=== PATIENT | female | born 1980 | race African-American/Black ===

== ENCOUNTER 2020-01-22 14:20 | Outpatient (CLI) | payer OTHER, SELFPAY ==
--- NOTE | ~2020-01-22 | MM_ITS ---
EXAMINATION: MM screening [facility] BI w larry HISTORY: Screening TECHNIQUE: Craniocaudal and mediolateral oblique 3-D tomosynthesis images were obtained and synthetic 2-D images were generated. CAD analysis was submitted and interpreted. COMPARISON: No prior mammogram is available for comparison at this institution. BREAST PARENCHYMAL COMPOSITION: There are scattered areas of fibroglandular density. FINDINGS: There is a mass in the upper outer quadrant of the left breast. There is no evidence of aaliyah picious mass, calcification, or architectural distortion to suggest malignancy in the right breast br east. IMPRESSION: 1. Left breast mass, upper outer quadrant. 2. Additional mammographic views and possible breast ultrasound are recommended. BI-RADS Category 0: Incomplete: Needs additional imaging evaluation. Reviewed, dictated and finalized at location A. IMPRESSION: 1. Left breast mass, upper outer quadrant. 2. Additional mammographic views and possible breast ultrasound are recommended . BI-RADS Category 0: Incomplete: Needs additional imaging evaluation.
== END 2020-01-22 14:21 | disposition home or self-care (01) ==
PROVIDERS: PCP Family Medicine; Visit Provider Obstetrics & Gynecology
DX: Z12.31 Encounter for screening mammogram for malignant neoplasm of breast (principal)
CPT/HCPCS: 77063; 77067

== ENCOUNTER 2020-02-15 12:29 | Outpatient (CLI) | payer OTHER, SELFPAY ==
--- NOTE | ~2020-02-15 | MMUS_ITS ---
EXAMINATION: MM diagnostic mammo unilat LT, US breast LT limited HISTORY: Follow-up left breast density TECHNIQUE: Additional 3-D tomosynthesis images of the left breast were performed and synthetic 2-D im ages were generated. CAD analysis was submitted and interpreted. High resolution Limited left breast ultrasound was performed. COMPARISON: 01/22/2020 BREAST PARENCHYMAL COMPOSITION: There are scattered areas of fibroglandular density. FINDINGS: MAMMOGRAPHIC FINDINGS: There is a mass in the upper outer quadrant of the left breast with lobulated margins, middle third. No suspicious calcifications or architectural distortion. ULTRASOUND: Left breast ultrasound, limited: At 1:00, 10 cm from the nipple, there is an irregular shaped hypoechoic mass with antiparallel confi guration and mixed posterior attenuation. This mass measures 1.6 x 1.1 x 1.1 cm. No internal vascular ity. IMPRESSION: 1. Irregular shaped hypoechoic mass of the left breast at 1:00, 10 cm from the nipple measuring 1.6 c m maximum dimension. This corresponds to the mammographic finding. 2. Ultrasound-guided left breast biopsy recommended. BI-RADS category 4, suspicious findings. Reviewed, dictated and finalized at location A. RETARDER OPERATOR IMPRESSION: 1. Irregular shaped hypoechoic mass of the left breast at 1:00, 10 cm from the nipple measuring 1.6 cm maximum dimension. This corresponds to the mammographic finding. 2. Ultrasound-guided left breast biopsy recommended. BI-RADS category 4, suspicious findings.
== END 2020-02-15 12:30 | disposition home or self-care (01) ==
LOC: ANHIMG 12:30
PROVIDERS: PCP Family Medicine; Visit Provider Obstetrics & Gynecology
DX: R92.8 Other abnormal and inconclusive findings on diagnostic imaging of breast (principal)
CPT/HCPCS: 76642; 77065

== ENCOUNTER 2020-02-28 08:55 | Outpatient (CLI) | payer OTHER, SELFPAY ==
--- NOTE | ~2020-02-28 | MMUS_ITS ---
EXAMINATION: US breast biopsy LT w image, MM post biopsy diagnostic LT DATE: 02/28/2020 10:16 (accession [id number]), 02/28/2020 10:24 (accession [id number]) INDICATION: Indeterminate left breast mass. Ultrasound-guided core biopsy is requested to evaluate f or malignancy. TECHNIQUE AND FINDINGS: The risks and potential benefits of the procedure were discussed with the patient including bleeding and infection. A time out was performed. The skin of the left breast was prepared and draped in usual sterile fashion. 1% lidocaine was used for superficial anesthesia. 1% lidocaine with epinephrine was used for deep anesthesia. A vacuum-assisted biopsy gun needle was advanced through to the outer edge of the region of interest from a lateral approach utilizing sonographic guidance. A total of four tissue core samples were obta ined through the lesion. A tissue marker clip was then placed at the biopsy site. Hemostasis was achi eved. A sterile bandage was applied. The patient tolerated procedure well and there was no evidence of immediate complication. The patient was given verbal instructions to return to the Emergency Department in the event of severe breast pa in or rapid breast enlargement. A two view left breast mammogram was obtained to document tissue garret er clip placement. IMPRESSION: 1. Successful ultrasound-guided vacuum-assisted biopsy of left breast mass with tissue marker placeme nt. Reviewed, dictated and finalized at location A. STOCK OPERATOR IMPRESSION: 1. Successful ultrasound-guided vacuum-assisted biopsy of left breast mass with tissue marker placement.
== END 2020-02-28 08:56 | disposition home or self-care (01) ==
PROVIDERS: PCP Family Medicine; Visit Provider Obstetrics & Gynecology
DX: N63.20 Unspecified lump in the left breast, unspecified quadrant (principal); R92.8 Other abnormal and inconclusive findings on diagnostic imaging of breast
CPT/HCPCS: 19083; 77065; 88305

== ENCOUNTER 2020-04-05 01:29 | Outpatient (CLI) | payer OTHER, SELFPAY ==
[2020-04-05 19:31] LABS: SARS-CoV-2 RNA PCR Negative
== END 2020-04-05 01:30 | disposition home or self-care (01) ==
LOC: ANHCOVIDDT 01:29
PROVIDERS: PCP Family Medicine; Visit Provider Surgery
DX: Z01.818 Encounter for other preprocedural examination (principal); Z20.828 Contact with and (suspected) exposure to other viral communicable diseases
CPT/HCPCS: 87635; C9803; U0003

== ENCOUNTER 2020-04-07 00:44 | Day surgery (SDC) | payer OTHER, SELFPAY ==
--- NOTE | 2020-04-03 16:14 | WPDANESEPPF ---
Anes - Initial Pre Proc Eval Procedure: Operation Date: 04/07/20 09:30 Proposed Procedures p Left Breast Excisional Biopsy With Ultrasound And/Or Mammogram Guided Needle Localization - Roberta Puente MD Date/Time: 04/03/20 16:14 Surgeon: Roberta Puente MD Pre Op Diagnosis: left breast mass Patient Data Age: 39 Gender: F Height: 1.7 m Weight: Allergies Allergy/AdvReac Type Severity Reaction Status Date / Time doxycycline Allergy Intermediate Vomiting Verified 03/28/20 13:50 amoxicillin Allergy Mild Itching Verified 03/28/20 13:50 Home Medications Medication Instructions Recorded Confirmed Type albuterol sulfate 90 mcg/actuation 1 puff INHALATION Q4H PRN #18 gm 10/16/19 03/28/20 Rx aerosol inhaler fluoxetine 10 mg capsule 10 mg PO DAILY #90 cap 10/16/19 03/28/20 Rx rizatriptan 10 mg disintegrating 10 mg PO ONCE PRN #10 tablet 10/16/19 03/28/20 Rx tablet topiramate 50 mg tablet 50 mg PO BID #180 tablet 10/16/19 03/28/20 Rx rbsmgiduhp-sywtpqr-pnqbhgxb 50 1 cap PO Q6H PRN #60 cap 10/21/19 03/28/20 Rx mg-325 mg-40 mg capsule varenicline 0.5 mg tablet 0.5 mg PO BID #60 tablet 03/17/20 03/28/20 Rx Patient hx anesthesia problems: none Family hx anesthesia problems: none PMFSH Past Medical History Medical History (Updated 04/07/20 @ 08:36 by Lonny Mcneal MD) Asthma BMI 37.0-37.9, adult GERD (gastroesophageal reflux disease) Headache Migraines Mild tobacco abuse Myositis ossificans PMDD (premenstrual dysphoric disorder) Surgical History Surgical History Hx of tonsillectomy Hx of tubal ligation Family History Family History Father Hypertension Family history of elevated blood lipids Mother Hypertension Family history of elevated blood lipids Sibling Hypertension Other Arthritis Social History Social History (Updated 03/17/20 @ 14:09 by Carolina Ivy) Social History: Years smoked: 20 Smoking status: Current every day smoker Tobacco type: cigarettes Second hand tobacco smoke exposure: Yes Additional smoking assessment comments: STATES 1/2PK/DAY/SING AGE 17 - TRYING TO QUIT & IS ON CHANTIX Alcohol intake: current Alcohol use details: STATES MAYBE 3 DRINKS A MONTH Substance use: never Substance use type: does not use Living arrangements: with family Gender identity (if verbalized by the patient): Female Spiritual care concerns: No Anes - Eval Final PreProcedure Day of Procedure 04/03/20 16:14 Patient weight: obese Heart: regular rate and rhythm Lungs: clear to auscultation and normal air movement Airway: Mallampati scale class II Neurological: alert and oriented Last oral intake: >/= 8 hours ASA classification: III Emergent: no Anesthetic plan: proceed Anesthesia type and monitoring: general GIVS and LMA Informed Consent: The patient's anesthetic plan and its attendant risks and benefits were discussed with the patient/family/POA. Questions were solicited and answers provided to the satisfaction of the patient/family/POA.
[2020-04-07] VITALS (10 sets, daily range): BP systolic 123–143; BP diastolic 86–97; PULSE 62–81; RESP 12–18; TEMP 36.1–36.4; O2SAT 96–100; BMI 36.6
--- NOTE | ~2020-04-07 | US_ITS ---
US breast needle loc LT, US surgical specimen LT DATE: 04/07/2020 13:14 MIRROR INSPECTOR INDICATION: Left breast mass. Excisional biopsy recommended on pathology. TECHNIQUE: Survey imaging of the left breast was performed. The left was targeted for needle localiz ation. The procedure and its risk and benefits were discussed with the patient. Risks included but w ere not limited to pain, bleeding and infection. The patient verbalized understanding and provided w ritten consent. A time-out was performed to document the patient's name, date of , and site of procedure. The u pper outer quadrant of the patient's left breast was prepped and draped in usual sterile fashion. 1% lidocaine was used for local anesthesia. Utilizing ultrasound guidance, a hook-wire system was adva nced into the lesion in the upper outer quadrant of the left breast. The patient tolerated procedure without immediate complication. Bandages were applied over the needl e localization wire. An invasive mammogram was subsequently performed for confirmation of wire placem ent. A surgical specimen was subsequently received from the operating room and was imaged with ultrasound. The wire is identified in the tissue specimen. The lesion of interest is not well visualized within the tissue specimen. These findings were communicated to the surgeon. IMPRESSION: 1. Status post ultrasound-guided left breast needle localization. Please refer to pathology report fo r histologic analysis. Reviewed, dictated and finalized at location A. OR INSPECTOR IMPRESSION: 1. Status post ultrasound-guided left breast needle localization. Please refer to pathology report for histologic analysis.
--- NOTE | 2020-04-07 07:27 | WPDHPUPDATE1 ---
History and Physical Update Update Date/Time: 04/07/20 07:27 History and Physical has been reviewed, including an updated exam of the patient. There are NO changes in the patient's condition. Risks, benefits, and alternatives have been discussed and questions answered. Patient agrees to proceed with procedure.
[2020-04-07] MEDS: LACTATED RINGERS 1,000 ML 30 ML IV CONT ×2 (07:30→12:38)
--- NOTE | 2020-04-07 11:11 | SUR.PREOP ---
1110 PT WALKED TO BATHROOM. VOIDED.
[2020-04-07] MEDS: CLINDAMYCIN 900 MG/D5W 50 ML 900 MG/50 ML PIGGYBACK 50 MG IVPB (11:24)
[2020-04-07] MEDS: BUPIVACAINE HCL 0.5% PF 30 ML VIAL INFILTRATE (11:52)
[2020-04-07] MEDS: fentaNYL CITRATE INJ (*CRX) 100 MCG/2 ML VIAL 25 MCG IV PUSH ×8 (12:38→13:11)
--- NOTE | 2020-04-07 12:54 | P.OP_ITS ---
Procedure Note - Detailed Date of procedure: 04/07/20 Pre-op diagnosis: left breast mass Post-op diagnosis: same Procedure performed: Excisional biopsy left breast mass with ultrasound guided preoperative needle localization Description of procedure: The patient is taken the operating room placed in the supine position. After adequate induction of general anesthesia, patient was prepped and draped in the normal sterile fashion. A time-out was then done to verify patient's identity, as well as procedure being performed. Of note, the patient had preoperative ultrasound-guided needle localization. Please see report for details of that procedure. I made an incision just inferior to the wire. The incision was carried down through the dermis to the level the breast tissue. Once achieved, I dissected the breast tissue off the overlying dermis. I then brought the wire into our operative field. Using very careful sharp dissection with the Bovie cautery, I dissected around the wire. I did wide local excision around the wire in all direction and was able to posteriorly excise around the distal portion of the wire. Of note, we did not encounter the wire during dissection. Once dissection was complete, the specimen was doni entated by placing a short stitch superiorly and a long stitch laterally. It was then sent to interventional Radiology for confirmation of excision. This was then again done under ultrasound and confirmed. I then gained hemostasis with the Bovie cautery. No other pathology was noted in the cavity. I then closed the subcutaneous tissue with 3 0 Vicryl suture. The skin was closed with 4 Ol Monocryl subcuticular suture. Dermabond was then placed on the wound. The patient tolerated the procedure well and was extubated in the operating room postoperatively. She will be sent to the recovery room in stable condition. 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
--- NOTE | 2020-04-07 13:18 | SUR.PHASEI ---
1317 DR GEORGE SPEAKING WITH PT.
[2020-04-07] MEDS: diphenhydrAMINE HCl INJ 50 MG/ML VIAL 25 MG IV PUSH (13:24)
[2020-04-07] MEDS: oxyCODONE HCL (*CRX) 5 MG TAB IR PO (14:00)
== END 2020-04-07 15:07 | disposition home or self-care (01) ==
PROVIDERS: PCP Family Medicine; Visit Provider Surgery
PROC: (CPT 19125; principal; 2020-04-07 09:30)
DX: D24.2 Benign neoplasm of left breast (principal); N60.82 Other benign mammary dysplasias of left breast; N60.32 Fibrosclerosis of left breast; N60.42 Mammary duct ectasia of left breast; N60.22 Fibroadenosis of left breast; J45.909 Unspecified asthma, uncomplicated; K21.9 Gastro-esophageal reflux disease without esophagitis; M61.9 Calcification and ossification of muscle, unspecified; F17.210 Nicotine dependence, cigarettes, uncomplicated; E66.9 Obesity, unspecified; Z68.36 Body mass index [BMI] 36.0-36.9, adult
CPT/HCPCS: 19125; 19285; 76999; 88305; 88307; A9270; C1769; C9803; J1100; J1200; J2250; J2405; J2704; J3010; J7120; U0003

== ENCOUNTER 2021-03-19 16:11 | Outpatient (CLI) | payer OTHER, SELFPAY ==
--- NOTE | ~2021-03-19 | MM_ITS ---
EXAMINATION: MM screening [facility] BI w larry HISTORY: Screening TECHNIQUE: Craniocaudal and mediolateral oblique 3-D tomosynthesis images were obtained and synthetic 2-D images were generated. CAD analysis was submitted and interpreted. COMPARISON: Comparison to multiple prior studies sequentially, with oldest reviewed study dated 01/09. BREAST PARENCHYMAL COMPOSITION: There are scattered areas of fibroglandular density. FINDINGS: There is a new area of architectural distortion in the upper outer quadrant of the left elvia ast, consistent with previous benign biopsy site. There is no evidence of suspicious mass, calcificat ion, or architectural distortion to suggest malignancy in either breast. There has been no suspicious interval change. IMPRESSION: 1. No mammographic evidence of malignancy. 2. Recommend routine screening mammography in one year. BI-RADS Category 2: Benign finding(s). Reviewed, dictated and finalized at location A. H HANDLER
== END 2021-03-19 16:12 | disposition home or self-care (01) ==
LOC: ANHIMG 16:17
PROVIDERS: PCP Family Medicine; Visit Provider Obstetrics & Gynecology
DX: Z12.31 Encounter for screening mammogram for malignant neoplasm of breast (principal)
CPT/HCPCS: 77063; 77067

== ENCOUNTER → 2021-06-17 15:44 | Outpatient (CLI) | payer OTHER, SELFPAY ==
--- NOTE | ~2021-06-17 | CT_ITS ---
EXAMINATION: CT ankle LT wo con DATE: 06/17/2021 16:13 INDICATION: Left ankle fracture TECHNIQUE: High resolution computed tomography (CT) of the left ankle was performed without intraveno us contrast. Additional sagittal and coronal reconstructions were performed. Automated exposure contr ol and iterative reconstruction technique were employed. The dose-length product was 215.78 mGy-cm. COMPARISON: None FINDINGS: One cortical width posterior displacement and minimal anterior angulation of an oblique fracture of t he lateral malleolus/distal fibula beginning anteriorly near the level of the tibiotalar joint line a nd extending posteriorly up to 6 cm proximal to the level of the joint line. Comminuted intra-articul ar fracture of the distal tibia with nondisplaced oblique sagittally oriented fracture plane extendin g across the proximal aspect of the medial malleolus to the articular surface along the medial margin of the tibial plafond. There is an additional oblique fracture plane extending proximally and latera lly to the lateral metaphyseal cortex proximally 5 cm proximal to the tibiotalar joint line. Finally there is a fracture plane extending across the posterior malleolus with a few millimeter proximal dis placement and which involves only a minimal portion of the articular cortex at the posterior medial a spect of the tibial plafond and. Ankle mortise remains congruent with normal joint space. No evident intra-articular loose bone fragments. No fracture in the visualized portions of the more distal left foot. Joint spaces are normal throughout the left foot. There is soft tissue swelling about the ankle and distal lower leg most prominently laterally and extending over the dorsolateral aspect of the mi d and forefoot. IMPRESSION: 1. Minimally displaced comminuted intra-articular fracture of the distal left tibia and minimally dis placed oblique fracture of the distal left fibula. Reviewed, dictated and finalized at location A. SUPPORT MAKER IMPRESSION: 1. Minimally displaced comminuted intra-articular fracture of the distal left t ibia and minimally displaced oblique fracture of the distal left fibula.
== END ==
PROVIDERS: PCP Family Medicine; Visit Provider Orthopaedic Surgery
DX: S82.892A Other fracture of left lower leg, initial encounter for closed fracture (principal)
CPT/HCPCS: 73700

== ENCOUNTER 2021-06-18 02:11 | Day surgery (SDC) | payer OTHER, SELFPAY ==
[2021-06-16 12:53] VITALS: BMI 36.8
--- NOTE | 2021-06-16 13:06 | PC.NURSE ---
Report to the Outpatient Waiting Room, entrance under the green pavilion located off [facility], at time 1030 on date 06/18/21. OR Time: 1230. - You and your visitor will be asked a series of questions to screen for COVID 19 for your protection. - A mask is required within the hospital. One visitor will be allowed to accompany the patient into the hospital. Patients visitor will be instructed to remain with patient at all times or leave the building. We will allow the visitor to come back to the postoperative area when patient is ready. Preoperative COVID Testing Requirements: No COVID Test needed if: (proof is required; if not received patient will have Rapid Test prior to entry) - Patient has received COVID Vaccine at least 14 days prior to procedure date or - Patient has positive COVID test result within last 90 days of surgery date. COVID Test needed if above criteria is not met Patients may have clear liquids (water, carbonated beverages, clear teas, apple juice) until 3 hours prior to surgery with a maximum of 20 ounces. - No food from midnight until time of surgery Take the following medications with a SIP of water the morning of surgery: MAY TAKE ALL MEDICATIONS NEEDED Medications to discontinue per physician: N/A Date to take last dose: N/A Please no make-up, nail swedish, hairspray, perfume, deodorant, or body powder the day of surgery. No jewelry (including any body piercings) or valuables the day of surgery, leave them at home. Please take a shower or bath the night before, or the morning of, surgery with an antibacterial soap. Wear comfortable, loose fitting clothing. - Jewelry must be removed prior to entering the operating room. Rings and piercings that are not removed may be cut off. - The hospital will not accept responsibility for valuables. - Please leave all valuables, including medications, at home the day of surgery. If you are going home after surgery, a licensed water taxi driver must drive you home. - NO public transportation without another adult. - We recommend that an adult stay with you for 24 hours following discharge. - We also recommend that you do not drive, make important decision, drink alcoholic beverages, or take any drugs that were not prescribed by your health care provider for at least 24 hours after your discharge time. Follow any additional instructions given to you from your surgeon. Telephone instructions given to SHERI LONG and asked if any additional questions and then verbalized understanding. Patient advised to call surgeon office or pre surgery nurse liaison [phone] if any additional questions.
--- NOTE | 2021-06-17 12:43 | WPDANESEPPF ---
Anes - Initial Pre Proc Eval Procedure: Operation Date: 06/18/21 12:30 Proposed Procedures p Open Reduction Internal Fixation Left Ankle Fracture - Steven Carpio MD Date/Time: 06/17/21 12:43 Surgeon: Steven Carpio MD Pre Op Diagnosis: left ankle fracture Patient Data Age: 40 Gender: F Height: 1.7 m Weight: 106.59 kg Allergies Allergy/AdvReac Type Severity Reaction Status Date / Time doxycycline Allergy Intermediate Vomiting Verified 06/16/21 12:51 amoxicillin Allergy Mild Itching Verified 06/16/21 12:51 Home Medications Medication Instructions Recorded Confirmed Type topiramate 50 mg tablet 50 mg PO BID #180 tablet 06/06/20 06/16/21 Rx fluoxetine 10 mg capsule 10 mg PO DAILY #90 cap 06/17/20 06/16/21 Rx ipratropium 0.5 mg-albuterol 3 mg 3 ml INHALATION Q4H PRN #180 ml 06/23/20 06/16/21 Rx (2.5 mg base)/3 mL nebulization soln rizatriptan 10 mg disintegrating 10 mg PO ONCE PRN #10 tablet 08/14/20 06/16/21 Rx tablet budesonide-formoterol HFA 160 2 puff INHALATION Q12H #10.2 g 01/21/21 06/16/21 Rx mcg-4.5 mcg/actuation aerosol inhaler ubrogepant 50 mg tablet 50 mg PO ONCE PRN #10 tablet 01/29/21 06/16/21 Rx buspirone 5 mg tablet 5 mg PO TID #270 tablet 05/26/21 06/16/21 Rx omeprazole 40 mg capsule,delayed 40 mg PO DAILY #90 cap 05/26/21 06/16/21 Rx release albuterol sulfate 90 mcg/actuation 1 inh INHALATION Q4H PRN #8.5 g 06/03/21 06/16/21 Rx aerosol inhaler hydrocodone 7.5 mg-acetaminophen 1 tablet PO Q4H PRN #30 tablet 06/16/21 06/16/21 Rx 325 mg tablet Patient hx anesthesia problems: none Family hx anesthesia problems: none Results Review: All pre-operative results and documents have been reviewed as part of the pre-operative evaluation. [facility] Past Medical History Medical History Asthma BMI 37.0-37.9, adult GERD (gastroesophageal reflux disease) Headache Migraines Mild tobacco abuse Myositis ossificans PMDD (premenstrual dysphoric disorder) Wears glasses Surgical History Surgical History History of excision of mass 04/07/20 Excisional biopsy left breast mass with ultrasound guided preoperative needle localization Hx of tonsillectomy Hx of tubal ligation Family History Family History Father Hypertension Family history of elevated blood lipids Mother Hypertension Family history of elevated blood lipids Sibling Hypertension Other Arthritis Asthma Social History Social History Social History: Smoking packs per day: 0.5 Smoking cigarettes per day: 10.0 Years smoked: 20 Smoking pack-years: 10.00 Smoking status: Current every day smoker Tobacco type: cigarettes Second hand tobacco smoke exposure: Yes Alcohol intake: current Alcohol use details: 1-2/MONTH Substance use: never Substance use type: does not use Living arrangements: with family 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 Gender identity (if verbalized by the patient): Female Sexual Orientation (if Verbalized by the Patient): Straight or Heterosexual Spiritual care concerns: No Anes - Eval Final PreProcedure Day of Procedure 06/17/21 12:43 Patient weight: obese Heart: regular rate and rhythm Lungs: clear to auscultation and normal air movement Airway: Mallampati scale class II Neurological: alert and oriented Last oral intake: >/= 8 hours ASA classification: III Emergent: no Anesthetic plan: proceed Anesthesia type and monitoring: general LMA Results Review: All pre-operative results and documents have been reviewed as part of the pre-operative evaluation. Informed Consent: The patient's anesthetic plan and its attendant risks and benefits were discussed with the patient/family/POA. Ques
[2021-06-18] VITALS (18 sets, daily range): BP systolic 117–140; BP diastolic 67–88; PULSE 77–105; RESP 14–20; TEMP 36.6–38; O2SAT 96–100
--- NOTE | ~2021-06-18 | XR_ITS ---
EXAMINATION: XR surgery orthopedic EXAM DATE: 06/18/2021 13:15 INDICATION: Left ankle ORIF. TECHNIQUE: Fluoroscopy used during left ankle ORIF performed by Dr. Steven Carpio MD. Radiologi st was not present for the imaging or procedure. Total fluoroscopic time of 1 minute. The DAP for t his procedure was 0.075 mGym2. A total of 4 images sent to PACS from the exam. FINDINGS: Comminuted left tibial plafond fracture and distal fibular metaphyseal fracture have been reduced and internally fixed with orthopedic hardware. Mortise relationship appears intact. Correlat e with procedure note. IMPRESSION: Fluoroscopy used during left fibular, tibial plafond and ORIF. Reviewed, dictated and finalized at location A. [employer]
--- NOTE | 2021-06-18 07:10 | WPDHPUPDATE1 ---
History and Physical Update Update Date/Time: 06/18/21 07:10 History and Physical has been reviewed, including an updated exam of the patient. There are NO changes in the patient's condition. Risks, benefits, and alternatives have been discussed and questions answered. Patient agrees to proceed with procedure.
[2021-06-18] MEDS: LACTATED RINGERS 1,000 ML 30 ML IV CONT ×2 (11:00→13:32)
[2021-06-18] MEDS: ACETAMINOPHEN 500 MG TABLET 1000 MG PO (11:00)
[2021-06-18] MEDS: KETOROLAC 15 MG/ML VIAL (*BKC) IV PUSH (11:00)
[2021-06-18] MEDS: ceFAZolin 2 GM/D5W 50 ML 2 GM/50 ML BAG IVPB (11:40)
--- NOTE | 2021-06-18 11:40 | WPDANESPNB ---
Anes - Peripheral Nerve Block Date/Time: 06/18/21 11:40 I have discussed with the patient/family/POA the placement of a peripheral nerve block for post-operative pain management, including associated risks, benefits, complications, and side effects. Alternative methods of post-operative analgesia were detailed. Questions were solicited and answers provided to the satisfaction of the patient/family/POA. Time-Out: A pre-procedural Time-Out was completed immediately before starting the procedure and confirmed: Patient Identification, Site, Procedure, Patient Position and the Availability of Requisite Equipment. Clinical Indications: Acute post-operative pain management requested by the operative surgeon. Nerve Block Insertion Note Anes-nerve block: posterior fossa sciatic (20cc) left and adductor canal (10cc) left Patient position: supine Skin prep: chlorhexidine Needle: 22 gauge, stimulating, insulated echogenic needle. Needle length: 80 mm Technique: ultrasound (in plane) Injectate: bupivacaine 0.5% with epi 5 mcg/ml (20cc) Observations: tolerated well Complications: none Procedure start time:: 113 Procedure end time:: 1134
[2021-06-18] MEDS: fentaNYL CITRATE INJ (*CRX) 100 MCG/2 ML VIAL 25 MCG IV PUSH ×8 (13:36→13:57)
--- NOTE | 2021-06-18 13:45 | W.PM.PROC2 ---
Procedure Note - Detailed Date of Procedure 06/18/21 Pre-op Diagnosis left ankle fracture-distal tibia weight-bearing comminuted fracture, distal fibula fracture Post-op Diagnosis Same Procedure Performed Open reduction internal fixation of left ankle distal tibia weight-bearing fracture with fixation of distal fibular fracture. Surgeon Steven Carpio MD [employer] litigation legal assistant Anesthesia General and Regional Indications 40-year-old woman fell injuring her left ankle. Fracture of the distal tibia with intra-articular extension as well as the distal fibula with displacement. Patient desires operative treatment. Description of Procedure After informed consent, the operative extremity was marked in the preoperative holding area. Patient received intravenous antibiotics. Patient was then taken to the operating room and underwent general anesthesia by the anesthesia team. Positioned supine on the operating room table with a soft bump under the ipsilateral hip. A time-out was performed confirming the patient, site of the surgery, operative plan. Lower extremity then prepped and draped in the usual sterile surgical fashion using ChloraPrep skin solution. Foot and ankle exsanguinated and a thigh tourniquet inflated to 250 mmHg. Longitudinal incision made over the lateral ankle distal fibula with a 15 blade knife. Hemostasis controlled with electrocautery. Full-thickness soft tissue flaps developed and the fascia was incised in line with the skin incision. Venous tourniquet noted and tourniquet released. Fracture identified and cleared with a dental pick, irrigation and rongeur. Fracture reduced and held with bone-holding clamp. Image intensification confirmed reduction of the fracture and the ankle mortise. Fixation achieved with a 3.5 millimeter fully-threaded cortical screw placed in lag technique across the fracture. Neutralization with a lateral plate with unicortical screws distal to fracture and bicortical screws proximal to the fracture. Good alignment and stability of the fracture noted. Image intensification used to confirm reduction of the fracture and placement of the hardware. Medial side then addressed. Longitudinal incision made with a 15 blade knife over the medial malleolus fracture and distal tibia.. Hemostasis controlled with electrocautery. Fascia incised in line with skin incision. Periosteum cleared from the medial malleolus fracture. Medial side of the joint inspected and noted to have mild amount of trauma to the chondral surface. Thorough irrigation of the ankle joint and suctioned out. Fracture reduced and provisionally pinned. Fixation achieved with 4.0 mm partially threaded cancellous screws placed in cannulated screw fashion through a hook plate placed medially on the distal tibia. Image intensification confirmed reduction of the fracture and placement of the hardware. Further fixation from the plate into the distal tibia with 3.5 mm cortical screws. Stress of the ankle performed with good stability of the ankle mortise in all directions. Intraoperative fluoroscopy confirm reduction of the tibia and fibula fractures and placement of the hardware. Stability of the ankle mortise and syndesmosis confirmed. Wounds thoroughly irrigated with solution. Fascia repaired with 0 Vicryl interrupted suture. Subcutaneous tissue repaired with 000 Monocryl interrupted suture and Skin approximated with carey. Sterile dressings applied followed by bulky dressing and splint. Patient awoken from anesthesia, extubated and taken to the recovery room in stable condition. All sponge, needle and instrument counts correct at the end of the case. Palpable dorsalis pedis pulse noted prior to dressing. Implants Arthrex 1/3 tubular plate, 7 hole laterally with appropriate screws, 7 hole hook plate medially with appropriate screws. Estimated Blood Loss 50 Tourniquet Time 5 Drains No Packing No Pathology None sent Complications None Condi
[2021-06-18] MEDS: HYDROmorphone HCL INJ (*CRX) 1 MG/ML SYR 0.5 MG IV PUSH ×4 (14:00→14:45)
[2021-06-18] MEDS: KCL 20 MEQ/D5/0.45% SOD CHL 1,000 ML 80 ML IV CONT (16:28)
[2021-06-18] MEDS: IBUPROFEN IV 800 MG/200 ML 800 MG/200 ML BAG 400 MG IVPB ×2 (16:29→21:37)
[2021-06-18] MEDS: SENNA/DOCUSATE SODIUM TABLET 2 TAB PO (17:30)
[2021-06-18] MEDS: busPIRone HCL 5 MG TABLET PO (17:31)
[2021-06-18] MEDS: TOPIRAMATE 25 MG TABLET 50 MG PO (17:31)
[2021-06-18] MEDS: HYDROcodone/acetaminophen (*CRX) 7.5-325 MG TABLET 1 TAB PO ×2 (18:56→22:10)
--- NOTE | 2021-06-18 20:16 | ADMGEN ---
This patient, Bhavna Campos, was admitted to Medical Room 346-01. Patient/family oriented to hospital policies and general routines including ID bracelet, bed and alarms, visiting hours, pain management, procedures, bathroom and other care routines, personal items, smoking policy, room service/diet, and visiting hours. Information on how to activate the Rapid Response Team has been discussed. Patient/Family are encouraged to report perceived risks to care and to ask questions if they do not understand what they are told or what they should do.
[2021-06-18] MEDS: FLUTICASONE/SALMETEROL 115-21 MCG INHALER 1 PUFF 2 PUFF INHALATION (21:29)
[2021-06-18] MEDS: RIZATRIPTAN BENZOATE 10 MG TABLET PO (21:37)
[2021-06-18] MEDS: FAMOTIDINE 20 MG TABLET PO (21:45)
[2021-06-18] MEDS: MORPHINE SULFATE (*CRX) 4 MG/ML INJ 3 MG IV PUSH (23:31)
[2021-06-19 00:40] VITALS: BP 134/79; PULSE 84; RESP 18; TEMP 36.9; O2SAT 99
[2021-06-19] MEDS: HYDROcodone/acetaminophen (*CRX) 7.5-325 MG TABLET 1 TAB PO ×4 (01:40→13:02)
[2021-06-19] MEDS: IBUPROFEN IV 800 MG/200 ML 800 MG/200 ML BAG 400 MG IVPB ×2 (03:14→09:54)
[2021-06-19 05:46] LABS: Anion Gap 5 mmol/L (8-16); Blood Urea Nitrogen 8 mg/dL (7-17); Calcium 9.4 mg/dL (8.4-10.2); Carbon Dioxide 21 mmol/L (22-30); Chloride 114 mmol/L (98-107); Estimated CRCL calculation 133 ml/min; Estimated Glomerular Filt Rate > 60; Glucose 123 mg/dL (65-110); Potassium 3.9 mmol/L (3.4-5.0); Sodium 140 mmol/L (137-145)
[2021-06-19 06:11] LABS: Basophils Percent Auto 0.1 % (0.2-1.2); Eosinophils Percent Auto 0.1 % (0-4.4); Hematocrit 34.1 % (37.0-47.0); Hemoglobin 10.7 g/dL (12.0-15.0); Immature Granulocyte Absolute 0.09 K/mm3 (0.00-0.031); Immature Granulocyte Percent A 0.7 % (0-0.5); Lymphocytes Absolute Auto 1.92 K/mm3 (0.9-3.2); Lymphocytes Percent Auto 13.9 % (18.3-44.2); Mean Corpuscular HGB Conc 31.4 g/dl (32-36); Mean Corpuscular Hemoglobin 26.9 pg (26-34); Mean Corpuscular Volume 85.7 fl (80-100); Mean Platelet Volume 10.4 fl (7.4-10.4); Monocytes Absolute Auto 1.2 K/mm3 (0.1-0.6); Monocytes Percent Auto 8.8 % (2.6-8.5); Neutrophils Absolute Auto 10.5 K/mm3 (1.3-6.7); Neutrophils Percent Auto 76.4 % (45.5-73.1); Platelet Count Result 251 k/mm3 (150-375); Red Blood Count 3.98 M/mm3 (4.2-5.4); Red Cell Distribution Width 14.5 % (11.5-14.5); White Blood Count 13.8 K/mm3 (4.5-10.0)
[2021-06-19 08:15] VITALS: O2SAT 100
[2021-06-19 08:54] VITALS: BP 135/65; PULSE 102; RESP 20; TEMP 36.9; O2SAT 100
--- NOTE | 2021-06-19 09:13 | PM.PNORT ---
Progress Note: A&P Assessment and Plan (1) Status post ORIF of fracture of ankle: Code(s): Z98.890 - Other specified postprocedural states; Z87.81 - Personal history of (healed) traumatic fracture Status: Acute Assessment and Plan: POD #1: ORIF Left Ankle Fracture Continue PT/OT. NWB LLE. Pain control. Ice, elevate. DVT prophylaxis. Incentive Spirometry. Bowel Regimen Dispo: Home Follow up scheduled. (2) Ankle fracture: Qualifiers: Encounter type: initial encounter Fracture type: closed Laterality: left Qualified Code(s): S82.892A - Other fracture of left lower leg, initial encounter for closed fracture Code(s): S82.899A - Other fracture of unspecified lower leg, initial encounter for closed fracture Status: Acute (3) Tobacco abuse: Code(s): Z72.0 - Tobacco use Status: Acute (4) Right ankle sprain: Qualifiers: Encounter type: subsequent encounter Involved ligament of ankle: anterior talofibular ligament Qualified Code(s): S93.491D - Sprain of other ligament of right ankle, subsequent encounter Code(s): S93.401A - Sprain of unspecified ligament of right ankle, initial encounter Status: Acute Assessment and Plan: Patient to be fit with fracture boot today prior to discharge. Ortho service will perform. Subjective Subjective Date/Time Seen: 06/19/21 09:13 Post Op day: 1 Principal diagnosis: Left Ankle Fracture Interval history: POD #1: ORIF Left Ankle Right ankle sprain. Continued pain/swelling. Mild difficulty with ambulation. Would like fracture boot for home. Pain well controlled overall of the LLE. Worked well with PT/OT. Hopeful for d/c home. Review of Systems Review of Systems: All systems reviewed & are unremarkable except as noted in HPI and below (HPI ) Exam Const: General: comfortable and no acute distress Resp: Effort & Inspection: normal respiratory effort Cardio: Rate: regular rate Rhythm: regular rhythm GI: Inspection: non-distended GI Palp: Yes Soft to palpation, No Firmness to palpation present (GI) and No Tenderness to palpation present (GI) Neuro: General: No gait normal Cognition (Neuro): normal cognition Extrem: Right lower extremity: ankle (LEN wrap in place. ) Left lower extremity: ankle (Splint c/d/i. ) Other: Splint LLE c/d/i. Moves toes. Sensation intact to light touch. Right ankle with LEN wrap in place. Mild swelling. Moves toes. NV intact. Psych: Mental Status: mental status grossly normal Thought content: Yes Normal thought content present Objective Data Vital Signs Vital Signs: Vital Signs - 24 hr 06/18/21 11:30 06/18/21 13:32 06/18/21 13:45 Temperature 36.6 C 36.7 C Pulse Rate 83 105 H 93 Respiratory Rate 18 16 16 Blood Pressure 132/86 135/78 124/81 Pulse Oximetry 100 97 100 06/18/21 14:00 06/18/21 14:15 06/18/21 14:30 Temperature Pulse Rate 91 93 91 Respiratory Rate 16 14 14 Blood Pressure 122/82 121/76 117/78 Pulse Oximetry 100 97 99 06/18/21 14:45 06/18/21 14:54 06/18/21 15:10 Temperature 38.0 C H Pulse Rate 86 87 88 Respiratory Rate 14 16 20 Blood Pressure 122/88 133/88 127/74 Pulse Oximetry 99 96 100 06/18/21 15:25 06/18/21 16:55 06/18/21 17:26 Temperature 36.9 C 36.9 C 37.3 C Pulse Rate 82 82 86 Respiratory Rate 20 18 20 Blood Pressure 123/73 131/67 140/80 Pulse Oximetry 100 100 100 06/18/21 17:40 06/18/21 20:03 06/18/21 20:15 Temperature Pulse Rate Respiratory Rate Blood Pressure Pulse Oximetry 99 99 99 06/18/21 21:27 06/18/21 23:23 06/18/21 23:24 Temperature 36.7 C 37.1 C Pulse Rate 78 77 Respiratory Rate 18 18 Blood Pressure 128/77 128/77 Pulse Oximetry 98 99 99 06/19/21 00:40 06/19/21 08:54 Temperature 36.9 C 36.9 C Pulse Rate 84 102 H Respiratory Rate 18 20 Blood Pressure 134/79 135/65 Pulse Oximetry 99 100 Intake/Output Intake/Output: Intake & Output 06/16/21 06/17/21 03
[2021-06-19] MEDS: FLUTICASONE/SALMETEROL 115-21 MCG INHALER 1 PUFF 2 PUFF INHALATION (09:26)
[2021-06-19 09:27] VITALS: O2SAT 96
--- NOTE | 2021-06-19 09:33 | P.PNAN_ITS ---
Anes - Prog Note Post-Op Date/Time: 06/19/21 09:33 Cardiovascular status: normal Respiratory status: normal Airway patency: baseline Mental status: baseline Post-Op hydration status: normal Vital Signs: Last Vital Signs Temp 36.9 C 06/19/21 08:54 Pulse 102 H 06/19/21 08:54 Resp 20 06/19/21 08:54 BP 135/65 06/19/21 08:54 Pulse Ox 96 06/19/21 09:27 Pain Score (VAS): 0 I/O: Intake & Output 06/18/21 06/19/21 06/19/21 23:59 07:59 15:59 Intake Total 450 1300 240 Output Total 1400 Balance 450 -100 240 Laboratory Tests 06/19/21 05:27 06/19/21 05:27 06/19/21 06/19/21 05:27 05:27 WBC 13.8 H RBC 3.98 L Hgb 10.7 L Hct 34.1 L MCV 85.7 MCH 26.9 MCHC 31.4 L RDW 14.5 Plt Count 251 MPV 10.4 Immature Gran % (Auto) 0.7 H Neut % (Auto) 76.4 H Lymph % (Auto) 13.9 L Knott % (Auto) 8.8 H Eos % (Auto) 0.1 Baso % (Auto) 0.1 L Lymph # (Auto) 1.92 Knott # (Auto) 1.2 H Eos # (Auto) 0.0 Baso # (Auto) 0.0 Abs Immat Gran (auto) 0.09 H Absolute Neuts (auto) 10.5 H Absolute Nucleated RBC 0.0 Nucleated RBC % 0.0 Sodium 140 Potassium 3.9 Chloride 114 H Carbon Dioxide 21 L Anion Gap 5 L BUN 8 Creatinine 0.60 L Estim Creat Clear Calc 133 Estimated GFR > 60 Glucose 123 H Calcium 9.4 Post-procedural complaints: none Patient Feedback: Patient satisfied with anesthetic care.
[2021-06-19] MEDS: SENNA/DOCUSATE SODIUM TABLET 2 TAB PO (09:53)
[2021-06-19] MEDS: TOPIRAMATE 25 MG TABLET 50 MG PO (09:53)
[2021-06-19] MEDS: busPIRone HCL 5 MG TABLET PO (09:53)
[2021-06-19] MEDS: polyethylene glycoL 3350 17 GM POWD.PACK PO (09:54)
[2021-06-19] MEDS: FLUoxetine HCL 10 MG CAPSULE PO (09:54)
[2021-06-19] MEDS: PANTOPRAZOLE 40 MG TABLET PO (09:54)
[2021-06-19] MEDS: FAMOTIDINE 20 MG TABLET PO (09:54)
[2021-06-19] MEDS: ASPIRIN 325 MG ENTERIC TABLET 650 MG PO (09:54)
== END 2021-06-19 13:15 | disposition home or self-care (01) ==
LOC: ANHSURGERY 11:44 → ANH3MED 17:21
PROVIDERS: PCP Family Medicine; Visit Provider Orthopaedic Surgery
PROC: (CPT 27828; principal; 2021-06-18 12:30)
DX: S82.832A Other fracture of upper and lower end of left fibula, initial encounter for closed fracture (principal); S82.872A Displaced pilon fracture of left tibia, initial encounter for closed fracture; X50.0XXA Overexertion from strenuous movement or load, initial encounter; G89.18 Other acute postprocedural pain; J45.909 Unspecified asthma, uncomplicated; K21.9 Gastro-esophageal reflux disease without esophagitis; F17.210 Nicotine dependence, cigarettes, uncomplicated; E66.9 Obesity, unspecified; Z68.37 Body mass index [BMI] 37.0-37.9, adult; Z79.51 Long term (current) use of inhaled steroids
CPT/HCPCS: 27828; 64445; 64447; 36415; 80048; 85025; 94640; 97161; 97165; A9270; C1713; C1769; J0690; J1100; J1170; J1741; J1885; J2250; J2270; J2405; J2704; J3010; J3480; J7120

== ENCOUNTER 2021-08-10 15:23 | Outpatient (CLI) | payer OTHER, SELFPAY ==
--- NOTE | ~2021-08-10 | XR_ITS ---
EXAMINATION: XR abdomen/kub 1V DATE: 08/10/2021 16:01 INDICATION: Nausea. TECHNIQUE: A supine view of the abdomen on 2 radiographs was obtained. COMPARISON: CT abdomen and pelvis 05/02/2012 FINDINGS: There are no dilated loops of bowel. There are numerous calcifications in the pelvis. There is an 8 mm stone in left kidney. IMPRESSION: 1. Normal bowel gas pattern. 2. 8 mm left kidney stone. 3. Calcifications in the pelvis, likely phleboliths. Distal ureteral stone cannot be excluded. Reviewed, dictated and finalized at location B. IMPRESSION: 1. Normal bowel gas pattern. 2. 8 mm left kidney stone. 3. Calcifications in the pelvis, likely phleboliths. Distal ureteral stone balbir ot be excluded.
[2021-08-10 16:25] LABS: Basophils Percent Auto 0.3 % (0.2-1.2); Eosinophils Absolute Auto 0.3 K/mm3 (0-0.3); Eosinophils Percent Auto 2.6 % (0-4.4); Hematocrit 42.6 % (37.0-47.0); Hemoglobin 13.8 g/dL (12.0-15.0); Immature Granulocyte Absolute 0.03 K/mm3 (0.00-0.031); Immature Granulocyte Percent A 0.3 % (0-0.5); Lymphocytes Absolute Auto 2.69 K/mm3 (0.9-3.2); Mean Corpuscular HGB Conc 32.4 g/dl (32-36); Mean Corpuscular Hemoglobin 26.8 pg (26-34); Mean Corpuscular Volume 82.7 fl (80-100); Mean Platelet Volume 10.9 fl (7.4-10.4); Monocytes Percent Auto 10.2 % (2.6-8.5); Neutrophils Absolute Auto 5.6 K/mm3 (1.3-6.7); Neutrophils Percent Auto 58.6 % (45.5-73.1); Platelet Count Result 334 k/mm3 (150-375); Red Blood Count 5.15 M/mm3 (4.2-5.4); Red Cell Distribution Width 13.9 % (11.5-14.5); White Blood Count 9.6 K/mm3 (4.5-10.0)
[2021-08-10 16:34] LABS: Alanine Aminotransferase 24 U/L (4-35); Albumin Level 4.1 g/dL (3.5-5.1); Alkaline Phosphatase 71 U/L (38-126); Anion Gap 8 mmol/L (8-16); Aspartate Amino Transferase 26 U/L (14-36); Bilirubin,Total 0.3 mg/dL (0.2-1.3); Blood Urea Nitrogen 12 mg/dL (7-17); Calcium 10.5 mg/dL (8.4-10.2); Carbon Dioxide 25 mmol/L (22-30); Chloride 107 mmol/L (98-107); Estimated Glomerular Filt Rate > 60; Glucose 97 mg/dL (65-110); Potassium 3.6 mmol/L (3.4-5.0); Sodium 140 mmol/L (137-145)
== END 2021-08-10 15:24 | disposition home or self-care (01) ==
LOC: ANHIMG 15:25
PROVIDERS: PCP Family Medicine; Visit Provider Nurse Practitioner Gerontology
DX: R11.0 Nausea (principal); R10.9 Unspecified abdominal pain; N20.0 Calculus of kidney
CPT/HCPCS: 36415; 74018; 80053; 85025

== ENCOUNTER → 2021-08-12 11:45 | Outpatient (CLI) | payer OTHER, SELFPAY ==
--- NOTE | ~2021-08-12 | CT_ITS ---
EXAMINATION: CT abdomen pelvis wo con DATE: 08/12/2021 12:02 INDICATION: Left flank pain. Pelvic pain. TECHNIQUE: Computed tomography (CT) of the abdomen and pelvis was performed without intravenous contr ast. Automated exposure control and iterative reconstruction technique were employed. The dose-length product was 734.55 mGy-cm. COMPARISON: CT abdomen and pelvis 05/02/2012 FINDINGS: The visualized portions of the lung bases demonstrate mild atelectasis in the left. No pleu ral effusion. The heart size is normal. No pericardial effusion. The liver, gallbladder, spleen, panc reas, adrenal glands, and kidneys are normal. There is a 7 mm stone in left renal pelvis. There are n o dilated loops of bowel. The appendix is normal. There is a small sliding hiatal hernia. There are n o pathologically enlarged lymph nodes. There is no free intraperitoneal fluid. There is mild lumbar s pondylosis. IMPRESSION: 1. 7 mm in the left renal pelvis. No hydronephrosis. 2. Small sliding hiatal hernia. Reviewed, dictated and finalized at location B.
== END ==
PROVIDERS: PCP Family Medicine; Visit Provider Nurse Practitioner Gerontology
DX: N20.0 Calculus of kidney (principal); R10.9 Unspecified abdominal pain; K44.9 Diaphragmatic hernia without obstruction or gangrene
CPT/HCPCS: 74176

== ENCOUNTER 2021-08-19 12:42 | Outpatient (CLI) | payer OTHER, SELFPAY ==
[2021-08-19 13:27] LABS: INR 1.2; Prothrombin Time 14.7 Seconds (11.1-14.7)
[2021-08-19 13:28] LABS: Partial Thromboplastin Time 28.7 SECONDS (22.3-36.8)
== END 2021-08-19 12:43 | disposition home or self-care (01) ==
PROVIDERS: PCP Family Medicine; Visit Provider Urology
DX: N20.0 Calculus of kidney (principal); Z01.818 Encounter for other preprocedural examination
CPT/HCPCS: 36415; 85610; 85730; 87086; 87088

== ENCOUNTER 2021-08-21 01:39 | Day surgery (SDC) | payer OTHER, SELFPAY ==
--- NOTE | 2021-08-17 13:17 | PC.NURSE ---
Report to the Outpatient Waiting Room, entrance under the green pavilion located off [facility], at time _0600 on date 08/21/21 . OR Time: _729 . - You and your visitor will be asked a series of questions to screen for COVID 19 for your protection. - Only one visitor is allowed at this time. - The patient visitor is requested to leave or wait in car when not with patient. - A mask is required within the hospital. Patients may have clear liquids (water, carbonated beverages, clear teas, apple juice) until 3 hours prior to surgery with a maximum of 20 ounces. - No food from midnight until time of surgery - Infants may have breast milk until 4 hours before surgery, infant formula 6 hours prior to surgery. - Children will be allowed to drink immediately following surgery. If applicable, please bring a bottle or sippy cup to assist with drinking. Juice, water, soda, and popsicles are readily available. For infants on formula, please bring formula the day of surgery. Pacifiers are allowed. Take the following medications with a SIP of water the morning of surgery: INHALER IF NEEDED, BUSPIRONE,FLUOXETINE,,MAY TAKE PAIN PILL IF NEEDED Medications to discontinue per physician ____ASPIRIN, NSAIDS 7 DAYS PRE OP- NORMALLY DOESN'T TAKE Date to take last dose Please no make-up, nail macedonian, hairspray, perfume, deodorant, or body powder the day of surgery. No jewelry (including any body piercings) or valuables the day of surgery, leave them at home. Please take a shower or bath the night before, or the morning of, surgery with an antibacterial soap. Wear comfortable, loose fitting clothing. Children are encouraged to wear pajamas. - Jewelry must be removed prior to entering the operating room. Rings and piercings that are not removed may be cut off. - The hospital will not accept responsibility for valuables. - Please leave all valuables, including medications, at home the day of surgery. If you are going home after surgery, a licensed fire truck driver must drive you home. - NO public transportation without another adult. - We recommend that an adult stay with you for 24 hours following discharge. - We also recommend that you do not drive, make important decision, drink alcoholic beverages, or take any drugs that were not prescribed by your health care provider for at least 24 hours after your discharge time. For Pediatric surgeries, we recommend two adults accompany the child home (only one inside the building at this time). Follow any additional instructions given to you from your surgeon. If you or anyone in your household have experienced Covid symptoms in the past week, please notify your surgeon or the nurse liaison at the phone number below for possible testing. Telephone instructions given to __PATIENT and asked if any additional questions and then verbalized understanding. Patient advised to call surgeon office or pre surgery nurse liaison [phone] if any additional questions.
[2021-08-17 13:30] VITALS: BMI 36.0
[2021-08-21] VITALS (8 sets, daily range): BP systolic 117–162; BP diastolic 76–99; PULSE 78–101; RESP 12–22; TEMP 36.1–36.8; O2SAT 96–100
--- NOTE | ~2021-08-21 | XR_ITS ---
EXAMINATION: XR abdomen/kub 1V INDICATION: Kidney stone TECHNIQUE: Supine views of the abdomen were obtained on 2 radiographs. COMPARISON: 08/10/2021 FINDINGS: An 8 mm stone projects in the left renal pelvis. No additional urolithiasis is identified. There are multiple phleboliths of the pelvis. Bowel gas pattern is normal. The visualized lung bases are clear. IMPRESSION: 1. 8 mm stone in the left renal pelvis. Reviewed, dictated and finalized at location A.
--- NOTE | 2021-08-21 07:01 | WPDANESEPPF ---
Anes - Initial Pre Proc Eval Procedure: Operation Date: 08/21/21 07:30 Proposed Procedures p Left Extracorporeal Shock Wave Lithotripsy - Nas Talavera MD s Cystoscopy, Left Ureteroscopy, Possible Left Stent Placement, Left Renal Stone Extraction, Left Retrograde Pyelogram, Possible Laser Lithotripsy - Nas Talavera MD Date/Time: 08/21/21 07:01 Surgeon: Nas Talavera MD Pre Op Diagnosis: Lt Renal Stone Patient Data Age: 40 Gender: F Height: 1.7 m Weight: 104.35 kg Allergies Allergy/AdvReac Type Severity Reaction Status Date / Time doxycycline AdvReac Intermediate Vomiting Verified 08/21/21 06:24 amoxicillin AdvReac Mild Itching Verified 08/21/21 06:24 Home Medications Medication Instructions Recorded Confirmed Type topiramate 50 mg tablet 50 mg PO BID #180 tablet 06/06/20 08/21/21 Rx fluoxetine 10 mg capsule 10 mg PO DAILY #90 cap 06/17/20 08/21/21 Rx ipratropium 0.5 mg-albuterol 3 mg 3 ml INHALATION Q4H PRN #180 ml 06/23/20 08/17/21 Rx (2.5 mg base)/3 mL nebulization soln ubrogepant 50 mg tablet 50 mg PO ONCE PRN #10 tablet 01/29/21 08/21/21 Rx buspirone 5 mg tablet 5 mg PO TID #270 tablet 05/26/21 08/21/21 Rx omeprazole 40 mg capsule,delayed 40 mg PO DAILY #90 cap 05/26/21 08/21/21 Rx release albuterol sulfate 90 mcg/actuation See Rx Instructions .ROUTE 07/06/21 08/21/21 Rx aerosol inhaler .COMPLEX #8.5 each ondansetron 4 mg disintegrating 4 mg PO Q8H PRN #20 tablet 08/10/21 08/21/21 Rx tablet budesonide-formoterol [Symbicort] 2 puff INHALATION PRN PRN 08/17/21 08/21/21 History hydrocodone-acetaminophen 1 tablet PO PRN PRN 08/17/21 08/21/21 History Patient hx anesthesia problems: none Family hx anesthesia problems: none Results Review: All pre-operative results and documents have been reviewed as part of the pre-operative evaluation. [facility] Past Medical History Medical History Asthma BMI 37.0-37.9, adult Encounter for postoperative care GERD (gastroesophageal reflux disease) Headache Migraines Mild tobacco abuse Myositis ossificans PMDD (premenstrual dysphoric disorder) Right ankle sprain Wears glasses Surgical History Surgical History History of excision of mass 04/07/20 Excisional biopsy left breast mass with ultrasound guided preoperative needle localization Hx of tonsillectomy Hx of tubal ligation Status post ORIF of fracture of ankle Family History Family History Father Hypertension Mother Family history of elevated blood lipids Hypertension Asthma Arthritis Sibling Hypertension Social History Social History Social History: Smoking packs per day: 0.5 Smoking cigarettes per day: 10.0 Years smoked: 20 Smoking pack-years: 10.00 Smoking status: Current every day smoker Tobacco type: cigarettes Second hand tobacco smoke exposure: Yes Alcohol intake: current Alcohol use details: 1-2/MONTH Substance use: never Substance use type: does not use Living arrangements: with family Additional occupation/education comments: [employer] Gender identity (if verbalized by the patient): Female Sexual Orientation (if Verbalized by the Patient): Straight or Heterosexual Spiritual care concerns: No Anes - Eval Final PreProcedure Day of Procedure 08/21/21 07:01 Patient weight: obese Heart: regular rate and rhythm Lungs: clear to auscultation Airway: Mallampati scale class II Neurological: alert and oriented Last oral intake: >/= 8 hours ASA classification: III Emergent: no Anesthetic plan: proceed Anesthesia type and monitoring: general LMA and standard monitoring Results Review: All pre-operative results and documents have been reviewed as part of the pre-operative evalu
--- NOTE | 2021-08-21 07:24 | WPDHPUPDATE1 ---
History and Physical Update Update Date/Time: 08/21/21 07:24 History and Physical has been reviewed, including an updated exam of the patient. There are NO changes in the patient's condition. Risks, benefits, and alternatives have been discussed and questions answered. Patient agrees to proceed with procedure. Proceed with eswl of left renal calculus. Possible cysto, left rpg, stent placement.
[2021-08-21] MEDS: LACTATED RINGERS 1,000 ML 30 ML IV CONT (07:31)
[2021-08-21] MEDS: ceFAZolin 2 GM/D5W 50 ML 2 GM/50 ML BAG IVPB (07:37)
--- NOTE | 2021-08-21 08:20 | W.PM.PROC2 ---
Procedure Note - Detailed Date of Procedure 08/21/21 Pre-op Diagnosis Lt Renal Stone Post-op Diagnosis Same Procedure Performed Lithotripsy of left renal/UPJ calculus Surgeon Nas Talavera MD Anesthesia General Description of Procedure Patient is taken to the operative suite and correctly identified. Once anesthesia was obtained stone was localized in both planes. Two thousand five hundred shocks were given the stone. There appeared to be good fragmentation. At this point we decided to leave the stent out. Patient is taken recovery stable condition. She will follow up in a week's time for stent removal Drains No Packing No Pathology None sent Complications No immediate complications Condition Stable Disposition PACU
[2021-08-21] MEDS: fentaNYL CITRATE INJ (*CRX) 100 MCG/2 ML VIAL 25 MCG IV PUSH ×4 (08:46→09:17)
[2021-08-21] MEDS: oxyCODONE HCL (*CRX) 5 MG TAB IR PO (10:08)
== END 2021-08-21 10:41 | disposition home or self-care (01) ==
PROVIDERS: PCP Family Medicine; Visit Provider Urology
PROC: (CPT 50590; principal; 2021-08-21 07:30)
DX: N20.1 Calculus of ureter (principal); J45.909 Unspecified asthma, uncomplicated; K21.9 Gastro-esophageal reflux disease without esophagitis; Z79.51 Long term (current) use of inhaled steroids; F17.210 Nicotine dependence, cigarettes, uncomplicated; E66.9 Obesity, unspecified; Z68.36 Body mass index [BMI] 36.0-36.9, adult
CPT/HCPCS: 50590; 36415; 74018; 85610; 85730; 87086; 87088; A9270; J0690; J1100; J2250; J2405; J2704; J3010; J7120

== ENCOUNTER 2022-05-12 16:30 | Outpatient (CLI) | payer OTHER, SELFPAY ==
--- NOTE | ~2022-05-12 | XR_ITS ---
Clinical Indication: Cough PA and lateral views of the chest: Comparison: None Findings: The lungs are clear, without evidence of focal consolidation or pleural effusion. Cardiome diastinal silhouette is within normal limits. Bones and soft tissues are unremarkable. Impression: Normal chest. Reviewed, dictated and finalized at location . [employer] Impression: Normal chest.
== END 2022-05-12 16:31 | disposition home or self-care (01) ==
LOC: ANHIMG 16:33
PROVIDERS: PCP Family Medicine; Visit Provider Nurse Practitioner Gerontology
DX: R05.9 Cough, unspecified (principal)
CPT/HCPCS: 71046

== ENCOUNTER 2022-06-02 09:54 | Outpatient (CLI) | payer OTHER, SELFPAY ==
--- NOTE | 2022-06-02 21:13 | WPDPFTINT ---
PFT Procedure Performed PFT Procedure Performed Plethysmography (Lung Vol) Diffusing Cap (DLCO) Flow Vol Loop Spirometry w/o Bronchodil PFT Interpretation DOS: 06/02/2022 REQUESTING: Carolina Mcallister NP REASON FOR TESTING: shortness of breath PULMONARY FUNCTION TESTS Results are reliable and reproducible. Spirometry: FEV1 is 1.74 L, 62%, reduced. Forced vital capacity is 2.44 L, 71%, mildly reduced. The FEV1/FVC ratio is 71%, reduced, consistent with airflow obstruction. No bronchodilator was administered. Lung volumes: Total lung capacity 4.30 L, 89%, normal. Residual volume 1.86 L, 113%, normal. RV/TLC is 43, elevated consistent with air trapping. Airway resistance is 3.14, 206%, elevated. Diffusion: DLCO 16.7, 67%, mildly decreased. DLCO/VA is 4.48, 98%, normal. Flow volume loop: There is mild scooping of the expiratory limb. IMPRESSION: This study the shows a mild obstructive ventilatory impairment with mild air trapping, mild diffusion impairment that corrects for alveolar volume. No bronchodilator was administered. Clinical correlation is recommended. Crystal Wolfe MD
== END 2022-06-02 09:55 | disposition home or self-care (01) ==
LOC: ANHPFT 09:54
PROVIDERS: PCP Family Medicine; Visit Provider Nurse Practitioner Gerontology
DX: R06.02 Shortness of breath (principal); R94.2 Abnormal results of pulmonary function studies
CPT/HCPCS: 94375; 94726; 94729

== ENCOUNTER 2022-06-29 07:47 | Outpatient (CLI) | payer OTHER, SELFPAY ==
--- NOTE | ~2022-06-29 | MM_ITS ---
EXAMINATION: MM screening [facility] BI w larry HISTORY: Screening TECHNIQUE: Craniocaudal and mediolateral oblique 3-D tomosynthesis images were obtained and synthetic 2-D images were generated. CAD analysis was submitted and interpreted. COMPARISON: Comparison to multiple prior studies sequentially, with oldest reviewed study dated 01/09. BREAST PARENCHYMAL COMPOSITION: There are scattered areas of fibroglandular density. FINDINGS: There is no evidence of suspicious mass, calcification, or architectural distortion to sugg est malignancy in either breast. There has been no suspicious interval change. IMPRESSION: 1. No mammographic evidence of malignancy. 2. Recommend routine screening mammography in one year. BI-RADS Category 1: Negative Reviewed, dictated and finalized at location A.
== END 2022-06-29 07:48 | disposition home or self-care (01) ==
LOC: ANHIMG 07:49
PROVIDERS: PCP Family Medicine; Visit Provider Obstetrics & Gynecology
DX: Z12.31 Encounter for screening mammogram for malignant neoplasm of breast (principal)
CPT/HCPCS: 77063; 77067

== ENCOUNTER 2022-07-13 14:39 | Outpatient (CLI) | payer OTHER, SELFPAY ==
[2022-07-13 15:24] LABS: Basophils Absolute Auto 0.1 K/mm3 (0.0-0.1); Basophils Percent Auto 0.5 % (0.2-1.2); Eosinophils Absolute Auto 0.4 K/mm3 (0-0.3); Eosinophils Percent Auto 4.1 % (0-4.4); Hematocrit 43.1 % (37.0-47.0); Hemoglobin 13.5 g/dL (12.0-15.0); Immature Granulocyte Absolute 0.04 K/mm3 (0.00-0.031); Immature Granulocyte Percent A 0.4 % (0-0.5); Lymphocytes Absolute Auto 3.45 K/mm3 (0.9-3.2); Lymphocytes Percent Auto 32.5 % (18.3-44.2); Mean Corpuscular HGB Conc 31.3 g/dl (32-36); Mean Corpuscular Hemoglobin 26.5 pg (26-34); Mean Corpuscular Volume 84.7 fl (80-100); Mean Platelet Volume 11.1 fl (7.4-10.4); Monocytes Absolute Auto 0.7 K/mm3 (0.1-0.6); Monocytes Percent Auto 6.2 % (2.6-8.5); Neutrophils Percent Auto 56.3 % (45.5-73.1); Platelet Count Result 290 k/mm3 (150-375); Red Blood Count 5.09 M/mm3 (4.2-5.4); Red Cell Distribution Width 14.4 % (11.5-14.5); White Blood Count 10.6 K/mm3 (4.5-10.0)
== END 2022-07-13 14:40 | disposition home or self-care (01) ==
LOC: ANHLAB 14:40
PROVIDERS: PCP Family Medicine; Visit Provider Physician Assistant
DX: J45.909 Unspecified asthma, uncomplicated (principal); R05.9 Cough, unspecified
CPT/HCPCS: 36415; 82785; 85025; 86003

== ENCOUNTER → 2023-03-22 10:05 | Outpatient (REF) | payer OTHER, SELFPAY | LOC: ANHLAB 10:05 | PROVIDERS: PCP Family Medicine; Visit Provider Plastic Surgery | DX: L72.3 Sebaceous cyst (principal) | CPT/HCPCS: 88305 ==

== ENCOUNTER 2023-08-16 16:58 | Outpatient (CLI) | payer OTHER, SELFPAY ==
--- NOTE | ~2023-08-16 | XR_ITS ---
EXAMINATION: XR chest 2V Exam Date/Time: 08/16/2023 17:00 CDT HISTORY: R05.9 - Cough,headache x 2days, congestion Comparison: 05/12/2022. RESULT: Lines, tubes, and devices: None. Lungs and pleura: Clear. Cardiomediastinal silhouette: Stable. Other: No acute osseous or upper abdominal finding. IMPRESSION: No acute cardiopulmonary process. Reviewed, dictated and finalized at location K.
[2023-08-16 18:22] LABS: Influenza A QL RT-PCR Negative (Negative); Influenza B QL RT-PCR Negative (Negative); RSV RNA, RT-PCR Negative (Negative); SARS-CoV-2 RNA PCR Negative (Negative)
== END 2023-08-16 16:59 | disposition home or self-care (01) ==
LOC: ANHIMG 16:59
PROVIDERS: PCP Family Medicine; Visit Provider Physician Assistant
DX: J02.9 Acute pharyngitis, unspecified (principal); R05.9 Cough, unspecified; Z20.822 Contact with and (suspected) exposure to COVID-19
CPT/HCPCS: 71046; 87637

== ENCOUNTER 2023-08-29 09:38 | Outpatient (CLI) | payer OTHER, SELFPAY ==
--- NOTE | ~2023-08-29 | MM_ITS ---
EXAMINATION: MM screening tamy BI w larry HISTORY: Screening TECHNIQUE: Craniocaudal and mediolateral oblique 3-D tomosynthesis images were obtained and synthetic 2-D images were generated. CAD analysis was submitted and interpreted. COMPARISON: Comparison to multiple prior studies sequentially, with oldest reviewed study dated 01/09. BREAST PARENCHYMAL COMPOSITION: Not dense: There are scattered areas of fibroglandular density. FINDINGS: In the upper outer quadrant of the left breast there is developing asymmetry with possible architectural distortion. The right breast is stable without evidence for malignancy. IMPRESSION: 1. Developing left breast asymmetry, upper outer quadrant. 2. Additional mammographic views and possible breast ultrasound are recommended. BI-RADS Category 0: Incomplete: Needs additional imaging evaluation. Reviewed, dictated and finalized at location A. IMPRESSION: 1. Developing left breast asymmetry, upper outer quadrant. 2. Additional mammographic views and possible breast ultrasound are recommended . BI-RADS Category 0: Incomplete: Needs additional imaging evaluation.
== END 2023-08-29 09:39 | disposition home or self-care (01) ==
LOC: ANHIMG 09:42
PROVIDERS: PCP Family Medicine; Visit Provider Obstetrics & Gynecology
DX: Z12.31 Encounter for screening mammogram for malignant neoplasm of breast (principal); N64.89 Other specified disorders of breast
CPT/HCPCS: 77063; 77067

== ENCOUNTER 2023-09-14 10:25 | Outpatient (CLI) | payer OTHER, SELFPAY ==
--- NOTE | ~2023-09-14 | MMUS_ITS ---
EXAMINATION: MM diagnostic tamy LT w larry, US breast LT limited HISTORY: Follow-up left breast asymmetry TECHNIQUE: Additional 3-D tomosynthesis images of the left breast were performed and synthetic 2-D im ages were generated. CAD analysis was submitted and interpreted. High resolution Limited left breast ultrasound was performed. COMPARISON: Comparison to multiple prior studies sequentially, with oldest reviewed study dated 01/09. BREAST PARENCHYMAL COMPOSITION: Not dense: There are scattered areas of fibroglandular density. FINDINGS: MAMMOGRAPHIC FINDINGS: There is distortion in the upper outer quadrant of the left breast, consistent with previous excision al biopsy. No discrete mass or suspicious calcifications. ULTRASOUND: Limited left breast ultrasound: No suspicious solid or cystic masses in the left breast. IMPRESSION: 1. No evidence for malignancy in the left breast. 2. Routine yearly screening mammogram and regular clinical breast examination are recommended. BI-RADS Category 2: Benign finding(s). Reviewed, dictated and finalized at location B. IMPRESSION: 1. No evidence for malignancy in the left breast. 2. Routine yearly screening mammogram and regular clinical breast examination a re recommended. BI-RADS Category 2: Benign finding(s).
== END 2023-09-14 10:26 | disposition home or self-care (01) ==
LOC: ANHIMG 10:27
PROVIDERS: PCP Family Medicine; Visit Provider Family Medicine
DX: R92.8 Other abnormal and inconclusive findings on diagnostic imaging of breast (principal)
CPT/HCPCS: 76642; 77061; 77065; G0279

== ENCOUNTER 2024-07-30 14:41 | Outpatient (CLI) | payer OTHER, SELFPAY ==
--- NOTE | ~2024-07-30 | CT_ITS ---
EXAMINATION: CT abdomen pelvis wo con DATE: 07/30/2024 16:03 INDICATION: Abdominal pain TECHNIQUE: Computed tomography (CT) of the abdomen and pelvis was performed without intravenous contr ast. Automated exposure control and iterative reconstruction technique were employed. The dose-length product was 216.13 mGy-cm. COMPARISON: 08/12/2021 FINDINGS: Lung bases are clear. Heart size is normal. No pericardial or pleural effusion. Liver, spleen, pancre as, bilateral adrenal glands and right kidney are normal. 7 mm stone at the left renal pelvis without hydronephrosis. No other evident urolithiasis. Unchanged pattern of phleboliths in the pelvis. Bowel s including the appendix are normal. Bladder is normal. Tampon within the vaginal vault. Lobular cont our to the uterus which suggests uterine fibroids. Likely tubal ligation rings along the left and rig ht sides of uterine fundus. No free intraperitoneal gas or fluid. No pathologically enlarged abdomina l or pelvic lymphadenopathy. Mild S-shaped curvature of the lumbar and lower thoracic spine with mild spondylosis. Transitional sacralized L5 segment.. IMPRESSION: 1. 7 mm nonobstructing stone at the left renal pelvis. No other acute intra-abdominal/pelvic process. Reviewed, dictated and finalized at location A. IMPRESSION: 1. 7 mm nonobstructing stone at the left renal pelvis. No other acute intra-abd ominal/pelvic process.
[2024-07-30 14:58] LABS: Basophils Absolute Auto 0.1 K/mm3 (0.0-0.1); Basophils Percent Auto 0.4 % (0.2-1.2); Eosinophils Absolute Auto 0.2 K/mm3 (0-0.3); Hematocrit 40.4 % (37.0-47.0); Hemoglobin 12.8 g/dL (12.0-15.0); Immature Granulocyte Absolute 0.04 K/mm3 (0.00-0.031); Immature Granulocyte Percent A 0.3 % (0-0.5); Lymphocytes Absolute Auto 3.05 K/mm3 (0.9-3.2); Mean Corpuscular HGB Conc 31.7 g/dl (32-36); Mean Corpuscular Hemoglobin 26.2 pg (26-34); Mean Corpuscular Volume 82.6 fl (80-100); Mean Platelet Volume 10.7 fl (7.4-10.4); Monocytes Absolute Auto 0.7 K/mm3 (0.1-0.6); Monocytes Percent Auto 5.9 % (2.6-8.5); Neutrophils Absolute Auto 7.7 K/mm3 (1.3-6.7); Neutrophils Percent Auto 65.4 % (45.5-73.1); Platelet Count Result 296 k/mm3 (150-375); Red Blood Count 4.89 M/mm3 (4.2-5.4); Red Cell Distribution Width 14.8 % (11.5-14.5); White Blood Count 11.7 K/mm3 (4.5-10.0)
[2024-07-30 15:18] LABS: Anion Gap 10 mmol/L (4-12); Blood Urea Nitrogen 11 mg/dL (7-17); Calcium 10.3 mg/dL (8.4-10.2); Carbon Dioxide 27 mmol/L (22-30); Chloride 101 mmol/L (98-107); Estimated Glomerular Filt Rate > 60; Glucose 92 mg/dL (65-110); Potassium 3.2 mmol/L (3.4-5.0); Sodium 138 mmol/L (137-145)
--- OUTSIDE RECORDS SUMMARY | 2024-07-30 16:40 | XMS_ITS | Clinical Summary ---
Author Organization [facility] Address [address] [place] [address] Care Team Providers Care Brush Washer Name Role Phone Vonnie Batista MD Primary Care Provider + Source Comments [facility],non-owned Affiliates and Associated Physician Practices is amultiple site organization consisting of ambulatory clinics and hospital sitesin [place], [place], [place] and [place]. This disclosure is being madepursuant to the Care Everywhere program and may not contain all information available regarding this patient. Last updated 17.[facility] [employer] Immunizations Immunization Administration Dates Next Due Covid Pfizer primary monovalent 12+ yr 0.3mL Pur ple cap 04/29/2021 INFLUENZA VACCINE, CELL CULT URE, QUADR. (FLUCELVAX QUADRIVALENT; 6MO+) (CCIIV4) 02/08/2017 INFLUENZA VACCINE, QUADR. 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 Gender Identity Not on file Sexual Orientation Not on file Plan of Treatment Health Maintenance Due Date Last Done Comments LIPID TESTING 1979 MAMMOGRAM 1979 PAP SMEAR 1979 HIV SCREENING 09/16/1994 HEPATITIS C SCREENING 09/12/1997 DTAP/TDAP/TD VACCINES (1 - Tdap) 09/16/1998 HEPATITIS B VACCINE (1 of 3 - 19+ 3-dose series) 09/16/1998 COVID-19 VACCINE (4 - 2023-2 5 season) 2023 04/29/2021, 09/14/2020, 08/24/2020 DEPRESSION SCREENING 04/11/2024 INFLUENZA VACCINE (Season Ended) 2024 01/25/2018, 02/08/2017 ZOSTER VACCINE (1 of 2) 09/16/2029 HIB VACCINE Aged Out No longer eligi ble based on patient's age to complete this topic HPV VACCINE Aged Out No longer eligi ble based on patient's age to complete this topic MENINGOCOCCAL (Group B) VACCINE SHARED DECISION-MAKING Aged Out No longer eligible based on patient's age to complete this topic MENINGOCOCCAL GROUPS A/C/Y/W VACCINE Aged Out No longer eligible b ased on patient's age to complete this topic PNEUMOCOCCAL VACCINE Aged Out No long er eligible based on patient's age to complete this topic Insurance [facility] SELF PAY NO INSURANCE Member Subscriber Plan / Payer (Ef fective for All Dates) Name:Sheri Campos Member ID:Not on file Relation to Subscriber:Not on file Name:SHERI CAMPOS Subscriber ID:Not on file Address: [address] [place] [id number] Payer ID:Not on file Group ID:Not on file Type:Self Pay Address: [place], [place] Care Teams Brush Washer Relationship Specialty Start Date End Date Vonnie Batista MD [address] [place] [address] PCP - General 02/29/20
--- OUTSIDE RECORDS SUMMARY | 2024-07-30 16:40 | XMS_ITS | Continuity of Care Document ---
Author Organization [facility] Address [address] [place] [address] Phone Care Team Providers Care Gas Compressor Operator Name Role Phone Henry Car Unavailable Unavailable Procedures Procedure Date Therapeutic Activities Neuromuscular Re-Ed Therapeutic Exercise Hot or Cold Pack Therapeutic Activities Therapeutic Exercise Neuromuscular Re-Ed Therapeutic Activities Neuromuscular Re-Ed Therapeutic Exercise Hot or Cold Pack Manual Therapy Neuromuscular Re-Ed Therapeutic Activities Therapeutic Exercise Manual Therapy Hot or Cold Pack Therapeutic Activities Manual Therapy Therapeutic Exercise Neuromuscular Re-Ed Therapeutic Activities Progress Note Neuromuscular Re-Ed Therapeutic Exercise Manual Therapy Hot or Cold Pack Therapeutic Activities Manual Therapy Therapeutic Exercise Neuromuscular Re-Ed Hot or Cold Pack Therapeutic Activities Therapeutic Exercise Manual Therapy Neuromuscular Re-Ed Hot or Cold Pack Therapeutic Activities Neuromuscular Re-Ed Manual Therapy Therapeutic Exercise Hot or Cold Pack Therapeutic Activities Neuromuscular Re-Ed Therapeutic Exercise Manual Therapy Hot or Cold Pack Therapeutic Activities Neuromuscular Re-Ed Hot or Cold Pack Manual Therapy Therapeutic Exercise Neuromuscular Re-Ed Therapeutic Activities Manual Therapy Hot or Cold Pack Therapeutic Activities Neuromuscular Re-Ed Manual Therapy Hot or Cold Pack Therapeutic Exercise PT Evaluation Moderate Complexity Neuromuscular Re-Ed Therapeutic Activities Therapeutic Exercise Advance Directives Directive Yes / No Effective Date File Name No Information Encounters Encounter Description Practice Location Reason(s) For Visit Diagnoses Date Provider Providers Copied on Encounter [facility], [id number], tel:[phone] [place] No Information 2 Dale Figueroa. [address] [facility], [address], [place], [address], . tel: [phone] [facility], [id number], [place] tel:[phone] [place] No Information 2 Baltazar Ericyn. . Referring Provider: Steven Carpio, [address] [facility] [address], [place], [address]. [facility] [facility] [address], [place], [id number], tel:[phone] [place] No Information Surendra-1 2-202 2 Baltazar Silvano. . Referring Provider: Steven Carpio, [address] [place] [address] [address], [place], [address]. [facility], [address], [place], [place], [id number], tel:[phone] [place] No Information Surendra-0 6-202 2 Muehl Henry. [address] [facility], [address], [place], [place], [facility], [place]. tel: [phone] Referring Provider: Steven Carpio, [address] [place] [address] [address], [place], [address]. [facility], [address] [place] [address] [address], [place], [place], [id number], [place] tel:[phone] [place] No Information Daniel-3 0-202 2 Muehl Henry. [address] [place] [address], [address], [place], [place], [facility], [place]. tel: [phone] Referring Provider: Steven Carpio, [address] [place] [address] [address], [place], [address]. [facility], [address] [facility], [place], [place], [id number], [place] tel:[phone] [place] No Information Daniel-2 8-202 2 Baltazar Silvano. . Referring Provider: Steven Carpio, [address] [place] [address] [address], [place], [address]. [facility], [address] [place], [place] [address], [place], [place], [id number], [place] tel:[phone] [place] No Information Daniel-2 2-202 2 Muehl Henry. [address] [place] [address], [address], [place], [address], [place]. tel: [phone] Referring Provider: Steven Carpio, [address] [place] [address] [address], [place], [address]. [facility], [address] [facility], [place], [place], [id number], [place] tel:[phone] [place] No Information Daniel-2 0-202 2 Muehl Henry. [address] [place] [address], [address], [place], [address], [place]. tel: [phone] Referring Provider: Steven Carpio, [address] [place] [address] [address], [place], [address]. [facility] [address] [place], [place] [address] [address], [place], [place], [id number], tel:[phone] [place] No Information Daniel-0 8- 2 Muehl Henry. [address] [place] [address], [address], [place], [place], [facility], . tel: [phone] Referring Provider: Steven Carpio, [address] [place] [address] [address], [place], [address]. [facility] [address] [place], [place] [address] [address], [place], [place], [id number], tel:[phone] [place] No Information Daniel-0 1- 2 Muehl Henry. [address] [place] [address], [address], [place], [place], [facility], . tel: [phone] Referring Provider: Steven Carpio, [address] [place] [address] [address], [place], [address]. [facility], [address] [place] [address] [address], [place], [place], [id number], tel:[phone] [place] No Information August-3 2 Muehl Henry. [address] [place] [address], [address], [place], [place], [facility], [place]. tel: [phone] Referring Provider: Steven Carpio, [address] [place] [address] [address], [place], [address]. [facility] [address] [facility] [address], [place], [place], [id number], tel:[phone] [place] No Information August-2 2 Muehl Henry. [address] [place] [address], [address], [place], [place], [facility], [place]. tel: [phone] Referring Provider: Steven Carpio, [address] [place] [address] [address], [place], [address]. [facility] [address] [facility] [address], [place], [place], [id number], tel:[phone] [place] No Information 2 Muehl Henry. [address] [facility], [address], [place], [place], [facility], . tel:[phone] Referring Provider: Steven Carpio, [address] [facility], [place], [address]. [address] [address], [place], [id number], tel:[phone] [place] No Information 0 2 Muehl Henry. [address] [facility], [address], [place], [place], [facility], . tel:[phone] Referring Provider: Steven Carpio [address], [place], [address]. [address], [place], [place], [id number], tel:[phone] [place] No Information 2 Muehl Henry. [address] [place] [address], [address], [place], [facility], . tel:[phone] Referring Provider: Steven Carpio [address] [facility] [address], [address]. Family History Family Member Type Diagnosis Age At Onset No Information Payers Payer name Insurance type Covered democrat ID Sheila cooperclaire(s) [facility] [id number] Social History Type Description Quantity Date Captured Comments Sex Female Smoking Status No Information Chief Complaint And Reason For Visit No Information Reason For Referral Reason For Referral No Information History Of Present Illness Encounter Date Complaint History Of Prese nt Illness No Information Functional Status Date Functional Assessmen t No Information Instructions Date Instruction Additional Infor mation Dietary needs education Related to Overweight Dietary needs education Related to Overweight Prescribed activity/exercise edu cation Related to Overweight Prescribed activity/exercise edu cation Related to Overweight Assessments Type Assessment Date No Information Patient Care Teams Name Effective Dates (start - stop) Status Members No Information
--- OUTSIDE RECORDS SUMMARY | 2024-07-30 16:40 | XMS_ITS | Referral Summary ---
Author Organization [facility] Address [address] [place] [address] Care Team Providers Care Assisted Living Administrator Name Role Phone Vonnie Batista MD Primary Care Provider Allergies No known active allergies Medications HYDROcodone-acet aminophen (NORCO) 5-325 mg per tabletIndication s:Pain Take 1 tablet by mouth every 6 (six) hours as needed for pain 20 tablet 06/12/2021 Active Social History Tobacco Use Types Packs/Day Years Used Date Smoking Tobacco: Every Day Cigarettes Smokeless Tobacco: Never Alcohol Use Standard Drinks/Week Comments Yes 0 (1 standard drink = 0.6 oz pur e alcohol) Personal Safety Answer Date Recorded Getting School Help Needed Not on file 06/04 Comments No Sex and Gender Information Value Date Recorded Sex Assigned at Not on file 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 Gender Identity Not on file Sexual Orientation Not on file Last Filed Vital Signs Vital Sign Reading Time Taken Comments Blood Pressure 131/80 06/12/2021 3:27 AM LABORER SALVAGE Pulse 68 06/12/2021 3:27 AM LABORER SALVAGE Temperature 36.8 C (98.2 F) 06/11/2021 11:41 PM LABORER SALVAGE Respiratory Rate 16 06/12/2021 3:27 AM LABORER SALVAGE Oxygen Saturation 97% 06/12/2021 3:27 AM LABORER SALVAGE Inhaled Oxygen Concentration - - Weight 104.3 kg (230 lb) 06/11/2021 11:41 PM LABORER SALVAGE Height 170.2 cm (5' 7 ) 06/11/2021 11:41 PM LABORER SALVAGE Body Mass Index 36.02 06/11/2021 11:41 PM LABORER SALVAGE Plan of Treatment Not on file Insurance CHOICE PLUS CHOICE PLUS Care Teams Assisted Living Administrator Relationship Specialty Start Date End Date Vonnie Batista MD [address] [facility] [address] [place] [address] PCP - General Family Medicine 06/11/21
--- OUTSIDE RECORDS SUMMARY | 2024-07-30 16:40 | XMS_ITS | Clinical Summary ---
Author Organization [facility] Address [address] [place] [address] Care Team Providers Care Vessel Captain Name Role Phone Vonnie Batista MD Primary Care Provider Allergies No known active allergies Medications HYDROcodone-acet aminophen (NORCO) 5-325 mg per tabletIndication s:Pain Take 1 tablet by mouth every 6 (six) hours as needed for pain 20 tablet 06/12/2021 Active Surgical History Surgery Date Site/Laterality Comments TONSILLECTOMY TUMOR REMOVAL TUBAL LIGATION Medical History Medical History Date Comments Asthma Social History Tobacco Use Types Packs/Day Years [...] on file 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 Gender Identity Not on file Sexual Orientation Not on file Obstetrics History Last Filed Vital Signs Vital Sign Reading Time Taken Comments Blood Pressure 131/80 06/12/2021 3:27 AM PARALEGAL INSTRUCTOR Pulse 68 06/12/2021 3:27 AM PARALEGAL INSTRUCTOR Temperature 36.8 C (98.2 F) 06/11/2021 11:41 PM PARALEGAL INSTRUCTOR Respiratory Rate 16 06/12/2021 3:27 AM PARALEGAL INSTRUCTOR Oxygen Saturation 97% 06/12/2021 3:27 AM PARALEGAL INSTRUCTOR Inhaled Oxygen Concentration - - Weight 104.3 kg (230 lb) 06/11/2021 11:41 PM PARALEGAL INSTRUCTOR Height 170.2 cm (5' 7 ) 06/11/2021 11:41 PM PARALEGAL INSTRUCTOR Body Mass Index 36.02 06/11/2021 11:41 PM PARALEGAL INSTRUCTOR Plan of Treatment Health Maintenance Due Date Last Done Comments Breast Cancer Screening-Mammogram 1979 Cervical Cancer Screening 1979 Depression Screening 1979 Hepatitis C Screening 1979 DTaP/Tdap/Td Vaccine (1 - Tdap) 09/16/1990 Varicella Vaccines (1 of 2 - 13+ 2-dose series) 09/16/1992 Hepatitis B Screening 09/16/1997 Regular Well Visit/Exam 18-64 09/16/1997 Pneumococcal vaccine <65 (1 of 2 - PCV) 09/16/1998 Covid-19 Vaccine (4 - 2023-2 5 season) 2023 04/29/2021, 09/14/2020, 08/24/2020 Influenza Vaccine (#1) 2023 8, 02/08/2017, 04/27/2012 HPV Vaccines Aged Out No longer eligi ble based on patient's age to complete this topic Insurance [facility]US [facility] HMO/PPO Address: [facility] [address] [place] [address] [facility] CHOICE PLUS [facility] HMO/PPO Address: [facility] [id number] [place] [address] Care Teams Vessel Captain Relationship Specialty Start Date End Date Vonnie Batista MD [address] [facility] [address] [place] [address] PCP - General Family Medicine 06/11/21
== END 2024-07-30 14:42 | disposition home or self-care (01) ==
PROVIDERS: PCP Family Medicine; Visit Provider Student in an Organized Health Care Education/Training Program
DX: R10.9 Unspecified abdominal pain (principal); R31.9 Hematuria, unspecified
CPT/HCPCS: 36415; 74176; 80048; 85025

== ENCOUNTER 2024-08-22 16:22 | Outpatient (CLI) | payer OTHER, SELFPAY ==
--- NOTE | ~2024-08-22 | XR_ITS ---
Right Shoulder Technique: AP and axillary views were obtained. Clinical History: Pain Findings: No fracture or dislocation is seen. Osseous alignment is anatomic. The glenohumeral and acr omioclavicular joint spaces are preserved. Soft tissues are unremarkable. Impression: Unremarkable right shoulder radiographs. Reviewed, dictated and finalized at [facility]. Impression: Unremarkable right shoulder radiographs.
== END 2024-08-22 16:23 | disposition home or self-care (01) ==
PROVIDERS: PCP Student in an Organized Health Care Education/Training Program; Visit Provider Student in an Organized Health Care Education/Training Program
DX: M25.511 Pain in right shoulder (principal)
CPT/HCPCS: 73030

== ENCOUNTER 2024-09-06 11:05 | Outpatient (CLI) | payer OTHER, SELFPAY ==
--- NOTE | ~2024-09-06 | XR_ITS ---
Exam: Abdomen 1V HISTORY: R10.9 - Unspecified abdominal pain x 1 wk COMPARISON: None. Reference is made to a CT examination of the abdomen and pelvis dated 07/30/2024 [facility] demonstrated a 7 mm nonobstructing stone at the level of the left renal pelvis. TECHNIQUE: Supine images of the abdomen FINDINGS: Bowel gas pattern is nonspecific and non-obstructive. There is no free air or deep sulci. Multiple phleboliths are identified within the pelvis. Fecal stasis precludes adequate evaluation of the bilateral kidneys shadows to visualize renal calcul i. Visualized portions of the lung bases are unremarkable. Bones and soft tissues are unremarkable. IMPRESSION: Nonspecific, nonobstructive bowel gas pattern. Multiple phleboliths within the pelvis. Reviewed, dictated and finalized at location A.
--- OUTSIDE RECORDS SUMMARY | 2024-09-06 11:08 | XMS_ITS | Clinical Summary ---
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 Gender Identity Not on file Sexual Orientation Not on file Obstetrics History Last Filed Vital Signs Vital Sign Reading Time Taken Comments Blood Pressure 131/80 06/12/2021 3:27 AM CUSTOMER SALES SERVICE MANAGER Pulse 68 06/12/2021 3:27 AM CUSTOMER SALES SERVICE MANAGER Temperature 36.8 C (98.2 F) 06/11/2021 11:41 PM CUSTOMER SALES SERVICE MANAGER Respiratory Rate 16 06/12/2021 3:27 AM CUSTOMER SALES SERVICE MANAGER Oxygen Saturation 97% 06/12/2021 3:27 AM CUSTOMER SALES SERVICE MANAGER Inhaled Oxygen Concentration - - Weight 104.3 kg (230 lb) 06/11/2021 11:41 PM CUSTOMER SALES SERVICE MANAGER Height 170.2 cm (5' 7) 06/11/2021 11:41 PM CUSTOMER SALES SERVICE MANAGER Body Mass Index 36.02 06/11/2021 11:41 PM CUSTOMER SALES SERVICE MANAGER Plan of Treatment Health Maintenance Due Date [...] season) 2023 04/29/2021, 09/14/2020, 08/24/2020 Influenza Vaccine (Season Ended) 2024 01/25/2018, 02/08/2017, 04/27/2012 HPV Vaccines Aged Out No longer eligi ble based on patient's age to complete this topic [place] [address] [facility] CHOICE PLUS Care Teams Sales Representative Adding Machines Relationship Specialty Start Date End Date Vonnie Batista MD [address] [facility] [address] [place] [address] PCP - General Family Medicine 06/11/21
--- OUTSIDE RECORDS SUMMARY | 2024-09-06 11:08 | XMS_ITS | Clinical Summary ---
Author Organization [facility] Address [address] [place] [address] Care Team Providers Care Mortician Investigator Name Role Phone Vonnie Batista MD Primary Care Provider + Source Comments [facility],non-owned Affiliates and Associated Physician Practices is amultiple site organization consisting of ambulatory clinics and hospital sitesin [place], [place], [place] and [place]. This disclosure is being madepursuant to the Care Everywhere program and may not contain all information available regarding this patient. 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 Gender Identity Not on file Sexual Orientation [...] patient's age to complete this topic Insurance [facility] SELF PAY NO INSURANCE Member Subscriber Plan / Payer (Ef fective for All Dates) Name:Sheri Campos Member ID:Not on file Relation to Subscriber:Not on file Name:SHERI CAMPOS Subscriber ID:Not on file Address: [address] [place] [id number] Payer ID:Not on file Group ID:Not on file Type:Self Pay Address: [place], [place] Care Teams Mortician Investigator Relationship Specialty Start Date End Date Vonnie Batista MD [address] [place] [address] PCP - General 02/29/20
--- OUTSIDE RECORDS SUMMARY | 2024-09-06 11:08 | XMS_ITS | Referral Summary ---
Author Organization [facility] Address [address] [place] [address] Care Team Providers Care Level Vial Sealer Name Role Phone Vonnie Batista MD Primary [...] on file Legal Sex Female 2:16 AM SUPERVISOR FILES Gender Identity Not on file Sexual Orientation Not on file Last Filed Vital Signs Vital Sign Reading Time Taken Comments Blood Pressure 131/80 06/12/2021 3:27 AM SUPERVISOR FILES Pulse 68 06/12/2021 3:27 AM SUPERVISOR FILES Temperature 36.8 C (98.2 F) 06/11/2021 11:41 PM SUPERVISOR FILES Respiratory Rate 16 06/12/2021 3:27 AM SUPERVISOR FILES Oxygen Saturation 97% 06/12/2021 3:27 AM SUPERVISOR FILES Inhaled Oxygen Concentration - - Weight 104.3 kg (230 lb) 06/11/2021 11:41 PM SUPERVISOR FILES Height 170.2 cm (5' 7) 06/11/2021 11:41 PM SUPERVISOR FILES Body Mass Index 36.02 06/11/2021 11:41 PM SUPERVISOR FILES Plan of Treatment Not on file Insurance CHOICE PLUS CHOICE PLUS Care Teams Level Vial Sealer Relationship Specialty Start Date End Date Vonnie Batista MD [address] [facility] [address] [place] [address] PCP - General Family Medicine 06/11/21
[2024-09-06 11:51] LABS: Basophils Absolute Auto 0.1 K/mm3 (0.0-0.1); Basophils Percent Auto 0.6 % (0.2-1.2); Eosinophils Absolute Auto 0.3 K/mm3 (0-0.3); Eosinophils Percent Auto 2.5 % (0-4.4); Hematocrit 47.3 % (37.0-47.0); Hemoglobin 14.9 g/dL (12.0-15.0); Immature Granulocyte Absolute 0.03 K/mm3 (0.00-0.031); Immature Granulocyte Percent A 0.2 % (0-0.5); Lymphocytes Absolute Auto 3.41 K/mm3 (0.9-3.2); Lymphocytes Percent Auto 27.6 % (18.3-44.2); Mean Corpuscular HGB Conc 31.5 g/dl (32-36); Mean Corpuscular Volume 82.7 fl (80-100); Monocytes Absolute Auto 0.9 K/mm3 (0.1-0.6); Monocytes Percent Auto 7.3 % (2.6-8.5); Neutrophils Absolute Auto 7.7 K/mm3 (1.3-6.7); Neutrophils Percent Auto 61.8 % (45.5-73.1); Platelet Count Result 403 k/mm3 (150-375); Red Blood Count 5.72 M/mm3 (4.2-5.4); Red Cell Distribution Width 15.1 % (11.5-14.5); White Blood Count 12.4 K/mm3 (4.5-10.0)
[2024-09-06 11:56] LABS: Add Urine Microscopic? YES; Appearance Urine Cloudy (Clear); Bacteria Urine 2+ /hpf; Bilirubin Urine Negative (Negative); Blood Urine Negative (Negative); Color Urine Dark Yellow (Yellow); Glucose Urine UA Negative (Negative); Ketones Urine 2+ mg/dL (Negative); Leukocyte Esterase Ur Trace LEU/UL (Negative); Nitrate Urine Negative (Negative); Protein Urine 1+ mg/dL (Negative); Specific Grav Ur 1.027 (1.001-1.035); Squamous Epithelial Cell Urine Many /hpf (Few); pH Urine 5.5 (5.0-9.0)
[2024-09-06 12:02] LABS: Alanine Aminotransferase 31 U/L (6-35); Albumin Level 4.8 g/dL (3.5-5.1); Alkaline Phosphatase 54 U/L (38-126); Amylase 89 U/L (30-110); Anion Gap 11 mmol/L (4-12); Aspartate Amino Transferase 30 U/L (14-36); Bilirubin,Total 0.8 mg/dL (0.2-1.3); Blood Urea Nitrogen 13 mg/dL (7-17); Carbon Dioxide 30 mmol/L (22-30); Chloride 99 mmol/L (98-107); Estimated Glomerular Filt Rate > 60; Glucose 97 mg/dL (65-110); Lipase 122 U/L (23-300); Potassium 2.9 mmol/L (3.4-5.0); Sodium 140 mmol/L (137-145)
== END 2024-09-06 11:06 | disposition home or self-care (01) ==
LOC: ANHLAB 11:07
PROVIDERS: PCP Family Medicine; Visit Provider Physician Assistant
DX: R14.0 Abdominal distension (gaseous) (principal); I87.8 Other specified disorders of veins; R11.2 Nausea with vomiting, unspecified; N20.0 Calculus of kidney; R82.998 Other abnormal findings in urine; K59.00 Constipation, unspecified
CPT/HCPCS: 36415; 74018; 80053; 81001; 82150; 83690; 85025

== ENCOUNTER 2025-01-29 14:08 | Outpatient (CLI) | payer OTHER, SELFPAY ==
--- OUTSIDE RECORDS SUMMARY | 2025-01-29 17:43 | XMS_ITS | Clinical Summary ---
Author Organization [facility] Address [address] [place] [address] Care Team Providers Care Crossing Supervisor Name Role Phone Vonnie Batista MD Primary Care Provider + Source Comments [facility],non-owned Affiliates and Associated Physician Practices is amultiple site organization consisting of ambulatory clinics and hospital sitesin [place], [place], [place] and [place]. This disclosure is being madepursuant to the Care Everywhere program and may not contain all information available regarding this patient. Last updated 17.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 Gender Identity Not on file Sexual Orientation Not on file Plan of Treatment Health Maintenance Due Date Last Done Comments COLOGUARD (AGES 45-75) - COL ON CA SCREENING 1979 COLON MONITORING 1979 COLONOSCOPY - COLON CA SCREENING 1979 CT COLONOGRAPHY - COLON CA SCREENING 1979 Colorectal Cancer Screening 1979 FIT - COLON CA SCREENING 1979 FLEX SIG - COLON CA SCREENING 1979 LIPID TESTING 1979 MAMMOGRAM 1979 HIV SCREENING 09/16/1994 HEPATITIS C SCREENING 09/12/1997 DTAP/TDAP/TD VACCINES (1 - Tdap) 09/16/1998 HEPATITIS B VACCINE (1 of 3 - 19+ 3-dose series) 09/16/1998 PAP SMEAR 09/16/2000 HPV VACCINE (1 - 3-dose SCDM series) 09/16/2006 DEPRESSION SCREENING 04/11/2024 COVID-19 VACCINE (4 - 2024-2 6 season) 2024 04/29/2021, 09/14/2020, 08/24/2020 INFLUENZA VACCINE (#1) 2024 8, 02/08/2017 ZOSTER VACCINE (1 of 2) 09/16/2029 [...] patient's age to complete this topic Insurance [facility] SELF PAY NO INSURANCE Member Subscriber Plan / Payer (Ef fective for All Dates) Name:Sheri Campos Member ID:Not on file Relation to Subscriber:Not on file Name:SHERI CAMPOS Subscriber ID:Not on file Address: [address] [place] [id number] Payer ID:Not on file Group ID:Not on file Type:Self Pay Address: [place], [place] Care Teams Crossing Supervisor Relationship Specialty Start Date End Date Vonnie Batista MD [address] [place] [address] PCP - General 02/29/20
--- OUTSIDE RECORDS SUMMARY | 2025-01-29 17:43 | XMS_ITS | Clinical Summary ---
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 Gender Identity Not on file Sexual Orientation Not on file Obstetrics History Last Filed Vital Signs Vital Sign Reading Time Taken Comments Blood Pressure 131/80 06/12/2021 3:27 AM SHARE DAIRY FARMER Pulse 68 06/12/2021 3:27 AM SHARE DAIRY FARMER Temperature 36.8 C (98.2 F) 06/11/2021 11:41 PM SHARE DAIRY FARMER Respiratory Rate 16 06/12/2021 3:27 AM SHARE DAIRY FARMER Oxygen Saturation 97% 06/12/2021 3:27 AM SHARE DAIRY FARMER Inhaled Oxygen Concentration - - Weight 104.3 kg (230 lb) 06/11/2021 11:41 PM SHARE DAIRY FARMER Height 170.2 cm (5' 7) 06/11/2021 11:41 PM SHARE DAIRY FARMER Body Mass Index 36.02 06/11/2021 11:41 PM SHARE DAIRY FARMER Plan of Treatment Health Maintenance Due Date Last Done Comments Breast Cancer Screening-Mammogram 1979 Cervical Cancer Screening 1979 Colon Cancer Screening-Colonoscopy 1979 Depression Screening 1979 Hepatitis C Screening 1979 DTaP/Tdap/Td Vaccine (1 - Tdap) 09/16/1990 Varicella Vaccines (1 of 2 - 13+ 2-dose series) 09/16/1992 Hepatitis B Screening 09/16/1997 Regular Well Visit/Exam 18-64 09/16/1997 Pneumococcal vaccine <65 (1 of 2 - PCV) 09/16/1998 HPV Vaccines (1 - 3-dose SCDM series) 09/16/2006 Covid-19 Vaccine ( season) 2024 04/29/2021, 09/14/2020, 08/24/2020 Influenza Vaccine (#1) 2024 8, 02/08/2017, 04/27/2012 Insurance [facility] [employer] Care Teams Commercial Electrician Relationship Specialty Start Date End Date Vonnie Batista MD [address] [place] [address] PCP - General Family Medicine 06/11/21
[2025-01-30 09:09] LABS: LH 10.0 mIU/mL (.)
[2025-01-30 10:08] LABS: FSH 2.8 mIU/mL (.)
== END 2025-01-29 14:09 | disposition home or self-care (01) ==
LOC: ANHLAB 14:09
PROVIDERS: PCP Family Medicine; Visit Provider Obstetrics & Gynecology
DX: N95.1 Menopausal and female climacteric states (principal)
CPT/HCPCS: 83001; 83002

== ENCOUNTER 2025-02-25 08:41 | Day surgery (SDC) | payer OTHER, SELFPAY ==
[2025-02-07 14:51] VITALS: BMI 32.3
[2025-02-14 12:16] VITALS: BMI 31.8
[2025-02-25 09:04] VITALS: BP 133/87; PULSE 93; RESP 16; TEMP 36.6; O2SAT 100; BMI 31.6
[2025-02-25] MEDS: LACTATED RINGERS 1,000 ML 150 ML IV CONT (09:18)
--- NOTE | 2025-02-25 09:22 | P.PNAN_ITS ---
Anes - Initial Pre Proc Eval Procedure: Operation Date: 02/25/25 10:15 Proposed Procedures p Screening Colonoscopy - Abisai Shafer MD Date/Time: 02/25/25 09:22 Surgeon: Abisai Shafer MD Pre Op Diagnosis: Encounter for screening for malignant neoplasm of Patient Data Age: 44 Gender: F Height: 1.65 m Weight: 86.1 kg Last Vital Signs Temp 36.6 C 02/25/25 09:04 Pulse 93 02/25/25 09:04 Resp 16 02/25/25 09:04 BP 133/87 02/25/25 09:04 Pulse Ox 100 02/25/25 09:04 O2 Del Method Room Air 02/25/25 09:04 Allergies Allergy/AdvReac Type Severity Reaction Status Date / Time doxycycline AdvReac Intermediate Vomiting Verified 02/25/25 08:59 amoxicillin AdvReac Mild Itching Verified 02/25/25 08:59 metformin AdvReac Intermediate Diarrhea Uncoded 01/29/25 13:25 Home Medications ?Medication ?Instructions ?Recorded ?Confirmed ?Type ipratropium 0.5 mg-albuterol 3 mg 3 ml inhalation Q4H PRN wheezing 05/12/22 02/14/25 Rx (2.5 mg base)/3 mL nebulization #180 mL soln albuterol sulfate 90 mcg/actuation See Rx Instructions .Route 06/04/22 02/14/25 Rx aerosol inhaler .COMPLEX #8.5 ea tirzepatide (weight loss) 5 mg/0.5 5 mg subcut WEEKLY 03/28/24 01/29/25 History mL subcutaneous pen injector Held on 09/06/24. Instructions: .Provider Order amlodipine 10 mg tablet See Rx Instructions .Route 0 09/07/24 02/25/25 Rx .COMPLEX #90 tabs sumatriptan succinate 50 mg tablet See Rx Instructions PO .COMPLEX 09/07/24 02/14/25 Rx #14 tabs hydrochlorothiazide 25 mg tablet See Rx Instructions . Route 10/22/24 02/25/25 Rx .COMPLEX #90 tabs rosuvastatin 5 mg tablet See Rx Instructions .Route 0 10/22/24 02/25/25 Rx .COMPLEX #90 tabs omeprazole 40 mg capsule,delayed See Rx Instructions . Route 07/17/25 11/17/25 Rx release .COMPLEX #90 caps sertraline 50 mg tablet 50 mg PO Q24H 02/14/2502/25 History Patient hx anesthesia problems: none Family hx anesthesia problems: none Results Review: All pre-operative results and documents have been reviewed as part of the pre- operative evaluation. ON LICENSE OF [facility] Past Medical History Medical History Abdominal pain COVID-19 long hauler Sebaceous cyst PMDD (premenstrual dysphoric disorder) Nausea Myositis ossificans Asthma exacerbation Viral gastroenteritis Thyroid disorder screen Streptococcal pharyngitis Strain of right subscapularis muscle PMS (premenstrual syndrome) Overeating Neck muscle spasm Myositis ossificans progressiva of left shoulder Mild intermittent asthma with (acute) exacerbation Migraines Generalized pruritus Cigarette nicotine dependence without complication Chronic fatigue Bronchitis with bronchospasm Allergic sinusitis Allergic dermatitis Acute pain of right shoulder Acute maxillary sinusitis, unspecified Acute eczema Abscess of axilla, left Thrush, oral Chondromalacia patellae of right knee Painful orthopaedic hardware Cough URI (upper respiratory infection) Body aches Kidney stones Nausea Right ankle sprain Wears glasses Ankle fracture Wrist pain, right Croup Asthma exacerbation BMI 37.0-37.9, adult GERD (gastroesophageal reflux disease) Mild tobacco abuse URI (upper respiratory infection) Lipid screening Asthma Headache Myositis ossificans PMDD (premenstrual dysphoric disorder) Migraines Surgical History Surgical History Status post ORIF of fracture of ankle Left ankle History of excision of mass 04/07/20 Excisional biopsy left breast mass with ultrasound guided preoperative needle localization Hx of tonsillectomy Hx of tubal ligation Family History Family History Father Hypertension Mother Family history of elevated blood lipids Hypertension Asthma Arthritis Sibling Hypertension Social History Social History Social History: Smoking packs per day: 0.5 Smoking cigarettes per day: 10.0 Years smoked: 20 Smoking pack-years: 10.00 Smoking status: Current every day smoker Tobacco type: cigarettes Second hand tobacco smoke exposure: Yes Alcohol intake: current Drinks per week: 0 Alcohol use details: 1-2 PER MONTH Substance use: current Substance use type: marijuana Other substance usage details: DAILY EDIBLES FOR ANXIETY Do You Feel Safe in your Home?: Yes Lack of Transportation: No Lack of Food: Never True Current Housing: I Have Housing Concerned About Future Housing: No Difficulty Paying Gas/Electric Bills: No Difficulty Paying for Meds: No Currently Unemployed: No Education: Don't Know Difficulty w/ Childcare or Family Care: No Living arrangements: with family Occupation/Education: occupation 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 Gender identity (if verbalized by the patient): Female Sexual Orientation (if Verbalized by the Patient): Straight or Heterosexual Spiritual care concerns: No Anes - Eval Final PreProcedure Day of Procedure 02/25/25 09:22 Heart: regular rate and rhythm Lungs: clear to auscultation Airway: Mallampati scale class II Neurological: alert and oriented Last oral intake: >/= 8 hours ASA classification: III Emergent: no Anesthetic plan: proceed Anesthesia type and monitoring: monitored anesthesia care Results Review: All pre-operative results and documents have been reviewed as part of the pre- operative evaluation. Informed Consent: The patient's anesthetic plan and its attendant risks and benefits were discuss ed with the patient/family/POA. Questions were solicited and answers provided to the satisfaction of the patient/family/POA.
--- NOTE | 2025-02-25 10:00 | PM.IMHP ---
H&P: HPI History of Present Illness Date/Time: 02/25/25 10:00 Chief Complaint: Screening colonoscopy Narrative: This is the patient's first colonoscopy. There are no GI symptoms and there is no family history of colorectal cancer. Review of Systems Review of Systems: All systems reviewed & are unremarkable except as noted in HPI and below [facility] Past Medical History Medical History Abdominal pain COVID-19 long hauler Sebaceous cyst PMDD (premenstrual dysphoric disorder) Nausea Myositis ossificans Asthma exacerbation Viral gastroenteritis Thyroid disorder screen Streptococcal pharyngitis Strain of right subscapularis muscle PMS (premenstrual syndrome) Overeating Neck muscle spasm Myositis ossificans progressiva of left shoulder Mild intermittent asthma with (acute) exacerbation Migraines Generalized pruritus Cigarette nicotine dependence without complication Chronic fatigue Bronchitis with bronchospasm Allergic sinusitis Allergic dermatitis Acute pain of right shoulder Acute maxillary sinusitis, unspecified Acute eczema Abscess of axilla, left Thrush, oral Chondromalacia patellae of right knee Painful orthopaedic hardware Cough URI (upper respiratory infection) Body aches Kidney stones Nausea Right ankle sprain Wears glasses Ankle fracture Wrist pain, right Croup Asthma exacerbation BMI 37.0-37.9, adult GERD (gastroesophageal reflux disease) Mild tobacco abuse URI (upper respiratory infection) Lipid screening Asthma Headache Myositis ossificans PMDD (premenstrual dysphoric disorder) Migraines Surgical History Surgical History Status post ORIF of fracture of ankle Left ankle History of excision of mass 04/07/20 Excisional biopsy left breast mass with ultrasound guided preoperative needle localization Hx of tonsillectomy Hx of tubal ligation Family History Family History Father Hypertension Mother Family history of elevated blood lipids Hypertension Asthma Arthritis Sibling Hypertension Social History Social History Social History: Smoking packs per day: 0.5 Smoking cigarettes per day: 10.0 Years smoked: 20 Smoking pack-years: 10.00 Smoking status: Current every day smoker Tobacco type: cigarettes Second hand tobacco smoke exposure: Yes Alcohol intake: current Drinks per week: 0 Alcohol use details: 1-2 PER MONTH Substance use: current Substance use type: marijuana Other substance usage details: DAILY EDIBLES FOR ANXIETY Do You Feel Safe in your Home?: Yes Lack of Transportation: No Lack of Food: Never True Current Housing: I Have Housing Concerned About Future Housing: No Difficulty Paying Gas/Electric Bills: No Difficulty Paying for Meds: No Currently Unemployed: No Education: Don't Know Difficulty w/ Childcare or Family Care: No Living arrangements: with family Occupation/Education: occupation 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 Gender identity (if verbalized by the patient): Female Sexual Orientation (if Verbalized by the Patient): Straight or Heterosexual Spiritual care concerns: No Meds Home Medications and Allergies Home Medications ?Medication ?Instructions ?Recorded ?Confirmed ?Type ipratropium 0.5 mg-albuterol 3 mg 3 ml inhalation Q4H PRN wheezing 05/12/22 02/14/25 Rx (2.5 mg base)/3 mL nebulization #180 mL soln albuterol sulfate 90 mcg/actuation See Rx Instructions .Route 06/04/22 02/14/25 Rx aerosol inhaler .COMPLEX #8.5 ea tirzepatide (weight loss) 5 mg/0.5 5 mg subcut WEEKLY 03/28/24 01/29/25 History mL subcutaneous pen injector Held on 09/06/24. Instructions: .Provider Order amlodipine 10 mg tablet See Rx Instructions .Route 09/07/24 02/25/25 Rx .COMPLEX #90 tabs sumatriptan succinate 50 mg tablet See Rx Instructions PO .COMPLEX 09/07/24 02/14/25 Rx #14 tabs hydrochlorothiazide 25 mg tablet See Rx Instructions .Route 10/22/24 02/25/25 Rx .COMPLEX #90 tabs rosuvastatin 5 mg tablet See Rx Instructions .Route 10/22/24 02/25/25 Rx .COMPLEX #90 tabs omeprazole 40 mg capsule,delayed See Rx Instructions .Route 10/25/24 02/25/25 Rx release .COMPLEX #90 caps sertraline 50 mg tablet 50 mg PO Q24H 02/14/25 02/25/25 History Allergies Allergy/AdvReac Type Severity Reaction Status Date / Time doxycycline AdvReac Intermediate Vomiting Verified 02/25/25 08:59 amoxicillin AdvReac Mild Itching Verified 02/25/25 08:59 metformin AdvReac Intermediate Diarrhea Uncoded 01/29/25 13:25 Vital Signs Vital Signs - 24 hr 02/25/25 09:04 Temperature 98 F Pulse Rate 93 Respiratory Rate 16 Blood Pressure 133/87 Pulse Oximetry 100 Oxygen Delivery Room Air Exam Const: General: cooperative and healthy appearing Resp: Effort & Inspection: normal respiratory effort and able to speak in complete sentences Auscultation: clear to auscultation bilaterally Cardio: Rate: regular rate Rhythm: regular rhythm GI: Inspection: normal to inspection GI Palp: No No hepatosplenomegaly present Auscultation: normal bowel sounds Rectal Exam: deferred Skin: General skin exam: normal color Psych: Appearance: grossly normal Mental Status: mental status grossly normal Assessment and Plan Assessment and plan (1) Encounter for screening colonoscopy: Code(s): Z12.11 - Encounter for screening for malignant neoplasm of colon Status: Acute Assessment and Plan: The patient is deemed a good candidate for the procedure. Consent signed. Will proceed.
[2025-02-25 10:27] VITALS: BP 104/73; PULSE 81; RESP 16; O2SAT 99
[2025-02-25 10:37] VITALS: BP 110/72; PULSE 78; RESP 18; O2SAT 100
--- NOTE | 2025-02-25 12:44 | WPDANESPN ---
Anes - Prog Note Post-Op Date/Time: 02/25/25 12:44 Cardiovascular status: normal Respiratory status: normal Airway patency: baseline Mental status: baseline Post-Op hydration status: normal Vital Signs: Last Vital Signs Temp 36.6 C 02/25/25 09:04 Pulse 78 02/25/25 10:37 Resp 18 02/25/25 10:37 BP 110/72 02/25/25 10:37 Pulse Ox 100 02/25/25 10:37 O2 Del Method Room Air 02/25/25 10:37 Pain Score (VAS): 0 I/O: Intake & Output 02/24/25 02/25/25 02/25/25 23:59 07:59 15:59 Intake Total 250 Balance 250 Post-procedural complaints: none Patient Feedback: Patient satisfied with anesthetic care.
--- NOTE | 2025-02-25 12:45 | WPDANESPN ---
Anes - Prog Note Post-Op Date/Time: 02/25/25 12:45 Cardiovascular status: normal Respiratory status: normal Airway patency: baseline Mental status: baseline Post-Op hydration status: normal Vital Signs: Last Vital Signs Temp 36.6 C 02/25/25 09:04 Pulse 78 02/25/25 10:37 Resp 18 02/25/25 10:37 BP 110/72 02/25/25 10:37 Pulse Ox 100 02/25/25 10:37 O2 Del Method Room Air 02/25/25 10:37 Pain Score (VAS): 0 I/O: Intake & Output 02/24/25 02/25/25 02/25/25 23:59 07:59 15:59 Intake Total 250 Balance 250 Post-procedural complaints: none Patient Feedback: Patient satisfied with anesthetic care.
== END 2025-02-25 11:17 | disposition home or self-care (01) ==
PROVIDERS: PCP Family Medicine; Referring Provider Obstetrics & Gynecology; Visit Provider Internal Medicine Gastroenterology
PROC: 0DJD8ZZ Inspection of Lower Intestinal Tract, Via Natural or Artificial Opening Endoscopic (ICD-10-PCS; CPT 45378; principal; 2025-02-25 10:15)
DX: Z12.11 Encounter for screening for malignant neoplasm of colon (principal)
CPT/HCPCS: 45378